=== PATIENT | female | born 1975 | race Caucasian/White ===

== ENCOUNTER 2018-02-03 11:40 | Inpatient (IN) | payer OTHER ==
[2018-02-03] MEDS ORDERED: Sodium Chloride 0.9% 10 ML Syringe FLUSH PRN (12:18)
[2018-02-03] MEDS ORDERED: Sodium Chloride 0.9% 2.5 ML Syringe FLUSH PRN (12:18)
[2018-02-03] MEDS ORDERED: Lactated Ringers 1,000 ML IV ONE (12:19)
[2018-02-03 12:55] LABS: CHLORIDE,CL 110 mmol/L (98-107); SODIUM,NA 140 mmol/L (136-145)
[2018-02-03] MEDS ORDERED: Pantoprazole 40 MG Vial IVPUSH ONE (13:10)
[2018-02-03] MEDS ORDERED: Pantoprazole 80 MG in Sodium Chloride 0.9% 100 ML IV SCH (13:15)
[2018-02-03] MEDS ORDERED: Ondansetron 4 MG/2 ML SDV IVPUSH PRN (14:09)
--- NOTE | 2018-02-03 14:13 | PCM.HP ---
H&P History of Present Illness - General Date of Service: 02/03/18 Admit Problem/Dx: Admission Diagnosis/Problem Admission Diagnosis/Problem GI bleed not requiring more than 4 units of blood in 24 hours, ICU, or surgery Source of Information: Patient, Old Records History Limitations: Reports: No Limitations - History of Present Illness Initial Comments - Free Text/Narative: This 42 year old female with pmh of HTN, untreated, presented to the ED today after having a large black and bloody incontinent bowel movement, per roomate report, this morning. She reports she started feeling short of breath, with racing/pounding heart and dizziness yesterday and it worsened with any activity. She thought maybe her blood pressure was elevated so she got a BP cuff , which was unable to register a BP. She reports a slight headache, no fever, chills, cough or URI symptoms. She denies chest pain or abdominal pain. No urinary symptoms. She reports she has noticed over the last few days her stools becoming darker and darker and nearly black last evening, no mecca blood that she noticed. She denies alcohol use or heavy NSAID use, She reports using Excedrin Tension as needed, mainly once every couple weeks if that. She has not noticed significant bowel habit changes, no constipation or diarrhea, but has noticed small stool caliber at times. No rectal pain or tenesmus. She denies heartburn or GERD like symptoms. celena was admitted in 2016 for pyelonephritis and noted to have Hgb of 7.7, transfused with 1 unit PRBCs but did not follow up after this admission with anyone regarding this. She reports she does have irregular periods that are quite heavy, needing to change a super tampon every 1 hr at some times during her 5-7 day menses. She is coming up on having her menses but is currently not having her menses. She has not had a pap smear recently and does not remember the last time she had one. She smokes almost a pack a day, little to no alcohol and no recreational drug use. In the ED, leukocytosis of 26,000, hgb 5.0 and Hct 15.8, BUN 51, Cr 0.9, glucose 145. Tachycardia and hypotension noted with HR in 130s ST and BP 90-100/ 50s. She was given Protonix bolus in the ED and LR bolus. She will be admitted for GI bleed and symptomatic anemia. No PCP - Related Data Allergies/Adverse Reactions: Allergies Allergy/AdvReac Type Severity Reaction Status Date / Time No Known Allergies Allergy Verified 02/03/18 12:12 Home Medications: Home Meds . [No Known Home Meds] 02/03/18 [History] Past Medical History HEENT History: Reports: None Cardiovascular History: Reports: Hypertension. Denies: Afib, Blood Clots/VTE/ DVT, CAD, [place] Respiratory History: Reports: None. Denies: Asthma, COPD Gastrointestinal History: Reports: GI Bleed. 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 Neurological History: Reports: None. Denies: CVA, Migraines, TIA Psychiatric History: Reports: None Endocrine/Metabolic History: Reports: None. Denies: Diabetes, Type II, Hypothyroidism Hematologic History: Reports: None - Infectious Disease History Infectious Disease History: Reports: Chicken Pox - Past Surgical History GI Surgical History: Reports: Other (See Below) (surgical repair of spleen laceration in 2006, still has spleen) Female Surgical History: Reports: Section Social & Family History - Family History Family Medical History: Noncontributory - Tobacco Use Smoking Status *Q: Current Every Day Smoker Years of Tobacco use: 15 Packs/Tins Daily: 1 Second Hand Smoke Exposure: Yes - Caffeine Use Caffeine Use: Reports: Coffee - Alcohol Use Days Per Week of Alcohol Use: 5 Number of Drinks Per Day: 2 Total Drinks Per Week: 10 - Recreational Drug Use Recreational Drug Use: No Recreational Drug Type: Reports: Marijuana/Hashish H&P Review of Systems - Review of Systems: Review Of Systems: See Below General: Reports: Weakness, Fatigue. Denies: Fever, Chills, Malaise HEENT: Denies: Headaches, Sinus Congestion, Visual Changes Pulmonary: Reports: Shortness of Breath. Denies: Wheezing, Cough, Sputum Cardiovascular: Reports: Dyspnea on Exertion, Lightheadedness, Syncope. Denies : Chest Pain Gastrointestinal: Reports: Black Stool, Bloody Stool, Diarrhea. Denies: Abdominal Pain, Nausea, Vomiting Genitourinary: Reports: No Symptoms. Denies: Dysuria, Frequency, Burning, Pain Musculoskeletal: Reports: No Symptoms Skin: Reports: No Symptoms Psychiatric: Reports: No Symptoms Neurological: Reports: No Symptoms Hematologic/Lymphatic: Reports: No Symptoms Immunologic: Reports: No Symptoms Exam - Exam Exam: See Below - Vital Signs Vital Signs: Last Vital Signs Temp 96.9 F 02/03/18 12:07 Pulse 138 H 02/03/18 12:07 Resp 22 H 02/03/18 12:07 BP 103/62 02/03/18 12:07 Pulse Ox 100 02/03/18 12:07 Weight: 55.021 kg - Exam General: Alert, Oriented, Cooperative, Other (pallor) HEENT: Conjunctiva Clear, Posterior Pharynx Clear. No: Mucosa Moist & [place] ( pale) Neck: Supple, Trachea Midline, 2 Lungs: Clear to Auscultation, Normal Respiratory Effort Cardiovascular: Regular Rhythm, Tachycardia GI/Abdominal Exam: Normal Bowel Sounds, Soft, Non-Tender, No Organomegaly, No Distention, No Abnormal Bruit, No Mass, Pelvis Stable Rectal (Female) Exam: Normal Rectal Tone, Black Stool, Heme + Stool. No: Hemorrhoids, Mass Extremities: Normal Inspection, Normal Range of Motion, Non-Tender, No Pedal Edema, Normal Capillary Refill Neuro Extensive - Mental Status: Alert, Oriented x3, Normal Mood/Affect, Normal Cognition Neuro Extensive - Motor, Sensory, Reflexes: CN II-XII Intact, Normal Gait, Normal Reflexes Psychiatric: Alert, Normal Affect, Normal Mood - Patient Data Lab Results Last 24 hrs: Laboratory Results - last 24 hr 02/03/18 02/03/18 02/03/18 Range/Units 12:08 12:08 12:08 WBC 26.41 H (4.0-11.0) K/uL RBC 1.83 L (4.30-5.90) M/uL Hgb 5.0 L (12.0-16.0) g/dL Hct 15.8 L (36.0-46.0) % MCV 86.3 (80.0-98.0) fL MCH 27.3 (27.0-32.0) pg MCHC 31.6 (31.0-37.0) g/dL RDW Std Deviation 47.3 (28.0-62.0) fl RDW Coeff of Bryan 15 (11.0-15.0) % Plt Count 353 (150-400) K/uL MPV 8.30 (7.40-12.00) fL Add Manual Diff YES Neutrophils % (Manual) 70 (48.0-80.0) % Band Neutrophils % 11 % Lymphocytes % (Manual) 17 (16.0-40.0) % Monocytes % (Manual) 1 (0.0-15.0) % Eosinophils % (Manual) 1 (0.0-7.0) % Nucleated RBC % 0.0 /100WBC Absolute Seg Neuts 18.5 H (1.4-5.7) Band Neutrophils # 2.9 Lymphocytes # (Manual) 4.5 H (0.6-2.4) Monocytes # (Manual) 0.3 (0.0-0.8) Eosinophils # (Manual) 0.3 (0.0-0.7) Nucleated RBCs # 0 K/uL Smear Path Review Absolute Retic (20-80) K/uL Percent Retic (0.5-1.5) % Immature Retic Fraction % INR 1.01 APTT 20.2 (18.6-31.3) SEC Sodium 140 (136-145) mmol/L Potassium 3.8 (3.5-5.1) mmol/L Chloride 110 H (98-107) mmol/L Carbon Dioxide 18.0 L (21.0-32.0) mmol/L BUN 51 H (7.0-18.0) mg/dL Creatinine 0.9 (0.6-1.0) mg/dL Est Cr Clr Drug Dosing TNP Estimated GFR (MDRD) > 60.0 ml/min Glucose 145 H (74-106) mg/dL Calcium 7.6 L (8.5-10.1) mg/dL Total Bilirubin 0.1 L (0.2-1.0) mg/dL AST 12 L (15-37) IU/L ALT 12 L (14-63) IU/L Alkaline Phosphatase 24 L (46-116) U/L Total Protein 4.4 L (6.4-8.2) g/dL Albumin 2.1 L (3.4-5.0) g/dL Globulin 2.3 (2.0-3.5) g/dL Albumin/Globulin Ratio 0.9 L (1.3-2.8) Blood Type Antibody Screen Crossmatch 02/03/18 02/03/18 02/03/18 Range/Units 12:08 12:08 12:08 WBC (4.0-11.0) K/uL RBC 1.83 L (4.30-5.90) M/uL Hgb (12.0-16.0) g/dL Hct (36.0-46.0) % MCV (80.0-98.0) fL MCH (27.0-32.0) pg MCHC (31.0-37.0) g/dL RDW Std Deviation (28.0-62.0) fl RDW Coeff of Bryan (11.0-15.0) % Plt Count (150-400) K/uL MPV (7.40-12.00) fL Add Manual Diff Neutrophils % (Manual) (48.0-80.0) % Band Neutrophils % % Lymphocytes % (Manual) (16.0-40.0) % Monocytes % (Manual) (0.0-15.0) % Eosinophils % (Manual) (0.0-7.0) % Nucleated RBC % /100WBC Absolute Seg Neuts (1.4-5.7) Band Neutrophils # Lymphocytes # (Manual) (0.6-2.4) Monocytes # (Manual) (0.0-0.8) Eosinophils # (Manual) (0.0-0.7) Nucleated RBCs # K/uL Smear Path Review SENT TO PATHOLOGY Absolute Retic 48.90 (20-80) K/uL Percent Retic 2.7 H (0.5-1.5) % Immature Retic Fraction 15 % INR APTT (18.6-31.3) SEC Sodium (136-145) mmol/L Potassium (3.5-5.1) mmol/L Chloride (98-107) mmol/L Carbon Dioxide (21.0-32.0) mmol/L BUN (7.0-18.0) mg/dL Creatinine (0.6-1.0) mg/dL Est Cr Clr Drug Dosing Estimated GFR (MDRD) ml/min Glucose (74-106) mg/dL Calcium (8.5-10.1) mg/dL Total Bilirubin (0.2-1.0) mg/dL AST (15-37) IU/L ALT (14-63) IU/L Alkaline Phosphatase (46-116) U/L Total Protein (6.4-8.2) g/dL Albumin (3.4-5.0) g/dL Globulin (2.0-3.5) g/dL Albumin/Globulin Ratio (1.3-2.8) Blood Type A POSITIVE Antibody Screen NEGATIVE Crossmatch See Detail Result Diagrams: 02/03/18 12:08 02/03/18 12:08 *Q Meaningful Use (ADM) - VTE *Q VTE Pharmacological Contraindications *Q: Risk of Bleeding - VTE Risk Assess *Q Each Risk Factor Represents 1 Point: Age 41 - 59 years Total Score 1 Point Risk Factors: 1 Each Risk Factor Represents 2 Points: None Total Score 2 Point Risk Factors: 0 Each Risk Factor Represents 3 Points: None Total Score 3 Point Risk Factors: 0 Each Risk Factor Represents 5 Points: None Total Score 5 Point Risk Factors: 0 Venous Thromboembolism Risk Factor Score *Q: 1 - Problem List (1) GI bleed SNOMED Code(s): 84461201 ICD Code: K92.2 - GASTROINTESTINAL HEMORRHAGE, UNSPECIFIED Status: Acute Current Visit: Yes Qualifiers: GI bleed type/associated pathology: unspecified gastrointestinal hemorrhage type Qualified Code(s): K92.2 - Gastrointestinal hemorrhage, unspecified (2) Symptomatic anemia SNOMED Code(s): 739583953 ICD Code: D64.9 - ANEMIA, UNSPECIFIED Status: Acute Current Visit: Yes (3) Hypotension SNOMED Code(s): 40541673 ICD Code: I95.9 - HYPOTENSION, UNSPECIFIED Status: Acute Current Visit: Yes (4) Tachycardia SNOMED Code(s): 0003966 ICD Code: R00.0 - TACHYCARDIA, UNSPECIFIED Status: Acute Current Visit: Yes (5) HTN (hypertension) SNOMED Code(s): 03236494 ICD Code: I10 - ESSENTIAL (PRIMARY) HYPERTENSION Status: Chronic Current Visit: Yes (6) Uterine fibroid SNOMED Code(s): 48888242 ICD Code: D25.9 - LEIOMYOMA OF UTERUS, UNSPECIFIED Status: Acute Current Visit: Yes Qualifiers: Uterine leiomyoma location: unspecified location Qualified Code(s): D25.9 - Leiomyoma of uterus, unspecified Problem List Initiated/Reviewed/Updated: Yes Orders Last 24hrs: Active Orders 24 hr Category Date Time Status Patient Status [ADT] Stat ADT 02/03/18 13:10 Active EKG 12 Lead [EKG Documentation Completion] [RC] ROUTINE Care 02/03/18 13:02 Active Hemoccult [Fecal Occult Blood Collection] [RC] Care 02/03/18 13:43 Ordered ASDIRECTED Intake and Output [RC] QSHIFT Care 02/03/18 14:09 Ordered Notify Provider Consults [RC] ASDIRECTED Care 02/03/18 14:11 Ordered Oxygen Therapy [RC] PRN Care 02/03/18 14:09 Ordered Up With Assistance [RC] ASDIRECTED Care 02/03/18 14:09 Ordered VTE/DVT Education [RC] PER UNIT ROUTINE Care 02/03/18 14:09 Ordered Vital Signs [RC] Q4H Care 02/03/18 14:09 Ordered Consult to Physician [CONS] Routine Cons 02/03/18 14:09 Ordered NPO [Nothing Per Oral Diet] [DIET] Diet 02/03/18 Dinner Ordered Abdomen Pelvis wo Cont [CT] Urgent Exams 02/03/18 14:11 Ordered Chest 1V Frontal [CR] Routine Exams 02/03/18 14:12 Ordered BASIC METABOLIC PANEL,BMP [CHEM] AM Lab 02/04/18 05:11 Ordered CBC WITH AUTO DIFF [HEME] AM Lab 02/04/18 05:11 Ordered CDIFF TOX A+B [OP] Routine Lab 02/03/18 13:42 Ordered CULTURE STOOL + CAMPY+SHIGATOX [RM] Routine Lab 02/03/18 13:42 Ordered FERRITIN [CHEM] Routine Lab 02/03/18 13:39 Ordered FOLIC ACID [CHEM] Routine Lab 02/03/18 13:39 Ordered Hemoccult [OCCULT BLOOD DIAGNOSTIC] [OP] Routine Lab 02/03/18 13:42 Ordered IRON/TIBC [CHEM] Routine Lab 02/03/18 13:39 Ordered RED BLOOD CELLS LP [BBK] Routine Lab 02/03/18 14:06 Ordered RED BLOOD CELLS LP [BBK] Stat Lab 02/03/18 12:08 Results TRANSFERRIN [CHEM] Routine Lab 02/03/18 13:39 Ordered TYPE AND SCREEN [BBK] Routine Lab 02/03/18 14:06 Ordered TYPE AND SCREEN [BBK] Stat Lab 02/03/18 12:08 Results UA W/MICROSCOPIC [URIN] Routine Lab 02/03/18 13:43 Ordered VITAMIN B12 [CHEM] Routine Lab 02/03/18 13:39 Ordered WBC, STOOL [OP] Routine Lab 02/03/18 13:42 Ordered Lactated Ringers @ 125 MLS/HR(1,000ml) Med 02/03/18 14:15 Ordered Lactated Ringers [Ringers, Lactated] 1,000 ml IV ASDIRECTED Ondansetron [Zofran] Med 02/03/18 14:09 Ordered 4 mg IVPUSH Q4H PRN Pantoprazole [ProTONIX IV] 80 mg Med 02/03/18 13:15 Active Sodium Chloride 0.9% [Normal Saline] 100 ml IV .Continuous Sodium Chloride 0.9% [Saline Flush] Med 02/03/18 12:18 Active 10 ml FLUSH ASDIRECTED PRN Sodium Chloride 0.9% [Saline Flush] Med 02/03/18 12:18 Active 2.5 ml FLUSH ASDIRECTED PRN Saline Lock Insert [OM.PC] Stat Oth 02/03/18 12:18 Ordered Sequential Compression Device [OM.PC] Per Unit Routine Oth 02/03/18 14:10 Ordered Transfuse Red Blood Cells [COMM] Stat Oth 02/03/18 12:53 Ordered Resuscitation Status Routine Resus Stat 02/03/18 14:09 Ordered Medication Orders Pantoprazole Sodium 80 mg/ (Sodium Chloride) 100 mls @ 10 mls/hr IV .Continuous BRYSON Lactated Ringer's (Ringers, Lactated) 1,000 mls @ 125 mls/hr IV ASDIRECTED BRYSON Ondansetron HCl (Zofran) 4 mg IVPUSH Q4H PRN PRN Reason: Nausea Sodium Chloride (Saline Flush) 10 ml FLUSH ASDIRECTED PRN PRN Reason: Keep Vein Open Sodium Chloride (Saline Flush) 2.5 ml FLUSH ASDIRECTED PRN PRN Reason: Keep Vein Open Assessment/Plan Comment:: This 42 year old female admitted with GI bleed and symptomatic anemia 1. GI bleed: Hgb 5.0 today. Transfuse 2 units now and likely 2 more this evening with goal of hgb at 10.0. Will Keep Protonix 40 mg IV BID for now. NPO with ice chips. Add H pylori to blood work. No abdominal pain. Hemoccult positive. Stool studies pending. Consult Dr Duran, general surgery for possible EGD. 2. Symptomatic anemia: Transfuse as above. Iron studies and peripheral smear pending. peripheral smear from 2 years ago revealed early iron deficiency anemia. 3. Leukocytosis: CXR and ua to evaluated further. Abdominal CT revealed no acute abdominal or pelvis findings. It did not hypodense blood suggesting anemia , small uterine fibroid and mild diverticulosis without evidence of diverticulitis. leukocytosis may be related to stress response from anemia. Will repeat this evening. 4. HTN: Not treated with medications. Monitor. currently hypotensive. No nicotine replacement at this time due to tachycardia and acute GI bleeding. VTE prophylaxis: SCDs only due to acute GI bleed and anemia Dispo: 2-3 days pending improvement. Will need follow up with PCP, [employer] related to heavy menses and uterine fibroid as well as general surgery for colonoscopy.
--- NOTE | 2018-02-03 15:20 | CT ---
CT of the abdomen and pelvis without contrast. HISTORY: Leukocytosis TECHNIQUE: Axial CT images were obtained of the abdomen and pelvis without contrast. Coronal and sagi ttal reconstructions obtained. FINDINGS: The lung bases are clear, no pleural effusion. The blood volume appears hypodense relative to the aor tic farias and myocardium. The liver, spleen, adrenal glands, and pancreas appear unremarkable for noncontrast examination. The gallbladder appears normal. There is no bulky retroperitoneal lymphadenopathy. No abdominal ascites. There are no calcifications noted within the kidneys or along the courses of the ureters bilaterally. The large and small bowel are normal in caliber without evidence of obstruction. The appendix appears normal. Few scattered diverticula noted. There is no bulky pelvic lymphadenopathy. No free fluid. No free air. The urinary bladder appears normal. Anterior uterine fibroid noted measuring approximately 3 cm. The visualized osseous structures appear normal. IMPRESSION: 1. No acute findings within the abdomen or pelvis. 2. Hypodense blood suggesting anemia. 3. Small uterine fibroid. 4. Mild diverticulosis without evidence of diverticulitis.
--- NOTE | 2018-02-03 15:28 | CR ---
EXAMINATION: Portable chest radiograph. HISTORY: Leukocytosis. FINDINGS: The trachea is midline. The cardiomediastinal silhouette is within normal limits. No pulmonary infilt rates, effusions or pneumothorax. Osseous structures appear unremarkable. IMPRESSION: No acute cardiopulmonary process.
--- NOTE | 2018-02-03 15:35 | PCM.CONS ---
H&P History of Present Illness - General Date of Service: 02/03/18 Admit Problem/Dx: Admission Diagnosis/Problem Admission Diagnosis/Problem GI bleed not requiring more than 4 units of blood in 24 hours, ICU, or surgery Source of Information: Patient History Limitations: Reports: No Limitations - History of Present Illness Initial Comments - Free Text/Narative: Patient is a 42 year old female who presents anemic with an acute GI bleed. Her past medical history is significant for pyelonephritis 2 years ago. At that time she was anemic and given 2 units of blood. She had no follow up. 3-4 days ago she started noticing her stool becoming very dark. This morning she had fecal incontinence of dark tarry stool and a syncopal episode. She presented to the ED. She was tachycardic and pale. Her hgb was 5 and hct 15. She had fecal occult positive stool. A CT of the abdomen/pelvis was positive for divertiuclosis and uterine fibroids. She did admit to having very heavy menses. She denies having any episodes like this before. She complains of weakness, dizziness, exercise intolerance and shortness of breath. She denies heartburn but intermittently will have epigastric pressure. She has never had a colonoscopy or EGD. She has no family history of colon cancer. - Related Data Allergies/Adverse Reactions: Allergies Allergy/AdvReac Type Severity Reaction Status Date / Time No Known Allergies Allergy Verified 02/03/18 12:12 Home Medications: Home Meds . [No Known Home Meds] 02/03/18 [History] Past Medical History HEENT History: Reports: None Cardiovascular History: Reports: Hypertension. Denies: Afib, Blood Clots/VTE/ DVT, CAD, [place] Respiratory History: Reports: None. Denies: Asthma, COPD Gastrointestinal History: Reports: GI Bleed. 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 Neurological History: Reports: None. Denies: CVA, Migraines, TIA Psychiatric History: Reports: None Endocrine/Metabolic History: Reports: None. Denies: Diabetes, Type II, Hypothyroidism Hematologic History: Reports: None - Infectious Disease History Infectious Disease History: Reports: Chicken Pox - Past Surgical History GI Surgical History: Reports: Other (See Below) (surgical repair of spleen laceration in 2006, still has spleen) Female Surgical History: Reports: Section Social & Family History - Family History Family Medical History: Noncontributory - Tobacco Use Smoking Status *Q: Current Every Day Smoker Years of Tobacco use: 15 Packs/Tins Daily: 1 Second Hand Smoke Exposure: Yes - Caffeine Use Caffeine Use: Reports: Coffee - Alcohol Use Days Per Week of Alcohol Use: 5 Number of Drinks Per Day: 2 Total Drinks Per Week: 10 - Recreational Drug Use Recreational Drug Use: No Recreational Drug Type: Reports: Marijuana/Hashish H&P Review of Systems - Review of Systems: Review Of Systems: ROS reveals no pertinent complaints other than HPI. Exam - Exam Exam: See Below - Vital Signs Vital Signs: Last Vital Signs Temp 37.2 C 02/03/18 14:55 Pulse 114 H 02/03/18 14:55 Resp 16 02/03/18 14:55 BP 121/80 02/03/18 14:55 Pulse Ox 100 02/03/18 14:55 Weight: 55.021 kg - Exam Quality Assessment: Supplemental Oxygen General: Alert, Oriented HEENT: Conjunctiva Clear, Hearing Intact, Posterior Pharynx Clear, Pupils Equal , Pupils Reactive, Other (Pale mucous membranes ) Neck: Supple, Trachea Midline Lungs: Clear to Auscultation, Normal Respiratory Effort Cardiovascular: Regular Rhythm, Tachycardia GI/Abdominal Exam: Soft, Non-Tender, No Distention, No Mass Rectal (Female) Exam: Normal Exam, Normal Rectal Tone, Black Stool, Heme + Stool Back Exam: Normal Inspection, Full Range of Motion Extremities: Normal Inspection, Normal Range of Motion Skin: Warm, Dry, Other (Pale) - Patient Data Lab Results Last 24 hrs: Laboratory Results - last 24 hr 02/03/18 02/03/18 02/03/18 Range/Units 12:08 12:08 12:08 WBC 26.41 H (4.0-11.0) K/uL RBC 1.83 L (4.30-5.90) M/uL Hgb 5.0 L (12.0-16.0) g/dL Hct 15.8 L (36.0-46.0) % MCV 86.3 (80.0-98.0) fL MCH 27.3 (27.0-32.0) pg MCHC 31.6 (31.0-37.0) g/dL RDW Std Deviation 47.3 (28.0-62.0) fl RDW Coeff of Bryan 15 (11.0-15.0) % Plt Count 353 (150-400) K/uL MPV 8.30 (7.40-12.00) fL Add Manual Diff YES Neutrophils % (Manual) 70 (48.0-80.0) % Band Neutrophils % 11 % Lymphocytes % (Manual) 17 (16.0-40.0) % Monocytes % (Manual) 1 (0.0-15.0) % Eosinophils % (Manual) 1 (0.0-7.0) % Nucleated RBC % 0.0 /100WBC Absolute Seg Neuts 18.5 H (1.4-5.7) Band Neutrophils # 2.9 Lymphocytes # (Manual) 4.5 H (0.6-2.4) Monocytes # (Manual) 0.3 (0.0-0.8) Eosinophils # (Manual) 0.3 (0.0-0.7) Nucleated RBCs # 0 K/uL Smear Path Review Absolute Retic (20-80) K/uL Percent Retic (0.5-1.5) % Immature Retic Fraction % INR 1.01 APTT 20.2 (18.6-31.3) SEC Sodium 140 (136-145) mmol/L Potassium 3.8 (3.5-5.1) mmol/L Chloride 110 H (98-107) mmol/L Carbon Dioxide 18.0 L (21.0-32.0) mmol/L BUN 51 H (7.0-18.0) mg/dL Creatinine 0.9 (0.6-1.0) mg/dL Est Cr Clr Drug Dosing TNP Estimated GFR (MDRD) > 60.0 ml/min Glucose 145 H (74-106) mg/dL Calcium 7.6 L (8.5-10.1) mg/dL Iron (50-175) ug/dL TIBC (250-450) ug/dL % Saturation (20-55) % Transferrin (200-400) ug/dL Ferritin (8-252) ng/mL Total Bilirubin 0.1 L (0.2-1.0) mg/dL AST 12 L (15-37) IU/L ALT 12 L (14-63) IU/L Alkaline Phosphatase 24 L (46-116) U/L Total Protein 4.4 L (6.4-8.2) g/dL Albumin 2.1 L (3.4-5.0) g/dL Globulin 2.3 (2.0-3.5) g/dL Albumin/Globulin Ratio 0.9 L (1.3-2.8) Vitamin B12 (193-986) pg/mL Folate (8.60-58.90) ng/mL Blood Type Antibody Screen Crossmatch 02/03/18 02/03/18 02/03/18 Range/Units 12:08 12:08 12:08 WBC (4.0-11.0) K/uL RBC 1.83 L (4.30-5.90) M/uL Hgb (12.0-16.0) g/dL Hct (36.0-46.0) % MCV (80.0-98.0) fL MCH (27.0-32.0) pg MCHC (31.0-37.0) g/dL RDW Std Deviation (28.0-62.0) fl RDW Coeff of Bryan (11.0-15.0) % Plt Count (150-400) K/uL MPV (7.40-12.00) fL Add Manual Diff Neutrophils % (Manual) (48.0-80.0) % Band Neutrophils % % Lymphocytes % (Manual) (16.0-40.0) % Monocytes % (Manual) (0.0-15.0) % Eosinophils % (Manual) (0.0-7.0) % Nucleated RBC % /100WBC Absolute Seg Neuts (1.4-5.7) Band Neutrophils # Lymphocytes # (Manual) (0.6-2.4) Monocytes # (Manual) (0.0-0.8) Eosinophils # (Manual) (0.0-0.7) Nucleated RBCs # K/uL Smear Path Review Absolute Retic 48.90 (20-80) K/uL Percent Retic 2.7 H (0.5-1.5) % Immature Retic Fraction 15 % INR APTT (18.6-31.3) SEC Sodium (136-145) mmol/L Potassium (3.5-5.1) mmol/L Chloride (98-107) mmol/L Carbon Dioxide (21.0-32.0) mmol/L BUN (7.0-18.0) mg/dL Creatinine (0.6-1.0) mg/dL Est Cr Clr Drug Dosing Estimated GFR (MDRD) ml/min Glucose (74-106) mg/dL Calcium (8.5-10.1) mg/dL Iron 24 L (50-175) ug/dL TIBC 269 (250-450) ug/dL % Saturation 8.92 L (20-55) % Transferrin 188 L (200-400) ug/dL Ferritin 6 L (8-252) ng/mL Total Bilirubin (0.2-1.0) mg/dL AST (15-37) IU/L ALT (14-63) IU/L Alkaline Phosphatase (46-116) U/L Total Protein (6.4-8.2) g/dL Albumin (3.4-5.0) g/dL Globulin (2.0-3.5) g/dL Albumin/Globulin Ratio (1.3-2.8) Vitamin B12 (193-986) pg/mL Folate (8.60-58.90) ng/mL Blood Type A POSITIVE Antibody Screen NEGATIVE Crossmatch See Detail 02/03/18 02/03/18 Range/Units 12:08 12:08 WBC (4.0-11.0) K/uL RBC (4.30-5.90) M/uL Hgb (12.0-16.0) g/dL Hct (36.0-46.0) % MCV (80.0-98.0) fL MCH (27.0-32.0) pg MCHC (31.0-37.0) g/dL RDW Std Deviation (28.0-62.0) fl RDW Coeff of Bryan (11.0-15.0) % Plt Count (150-400) K/uL MPV (7.40-12.00) fL Add Manual Diff Neutrophils % (Manual) (48.0-80.0) % Band Neutrophils % % Lymphocytes % (Manual) (16.0-40.0) % Monocytes % (Manual) (0.0-15.0) % Eosinophils % (Manual) (0.0-7.0) % Nucleated RBC % /100WBC Absolute Seg Neuts (1.4-5.7) Band Neutrophils # Lymphocytes # (Manual) (0.6-2.4) Monocytes # (Manual) (0.0-0.8) Eosinophils # (Manual) (0.0-0.7) Nucleated RBCs # K/uL Smear Path Review SENT TO PATHOLOGY Absolute Retic (20-80) K/uL Percent Retic (0.5-1.5) % Immature Retic Fraction % INR APTT (18.6-31.3) SEC Sodium (136-145) mmol/L Potassium (3.5-5.1) mmol/L Chloride (98-107) mmol/L Carbon Dioxide (21.0-32.0) mmol/L BUN (7.0-18.0) mg/dL Creatinine (0.6-1.0) mg/dL Est Cr Clr Drug Dosing Estimated GFR (MDRD) ml/min Glucose (74-106) mg/dL Calcium (8.5-10.1) mg/dL Iron (50-175) ug/dL TIBC (250-450) ug/dL % Saturation (20-55) % Transferrin (200-400) ug/dL Ferritin (8-252) ng/mL Total Bilirubin (0.2-1.0) mg/dL AST (15-37) IU/L ALT (14-63) IU/L Alkaline Phosphatase (46-116) U/L Total Protein (6.4-8.2) g/dL Albumin (3.4-5.0) g/dL Globulin (2.0-3.5) g/dL Albumin/Globulin Ratio (1.3-2.8) Vitamin B12 197 (193-986) pg/mL Folate 18.60 (8.60-58.90) ng/mL Blood Type Antibody Screen Crossmatch Result Diagrams: 02/03/18 12:08 02/03/18 12:08 Himanshu Results Last 24 hrs: Microbiology 02/03/18 14:30 Stool Occult Blood (HIMANSHU) - Final Stool / Feces POSITIVE OCCULT BLOOD Consult PN Assessment/Plan Procedures: Procedures ASSAY OF LIPASE (07/13/16) COMPLETE CBC W/AUTO DIFF WBC (07/13/16) COMPREHEN METABOLIC PANEL (07/13/16) ECHO EXAM OF ABDOMEN (07/13/16) EMERGENCY DEPT VISIT (07/13/16) HYDRATE IV INFUSION ADD-ON (07/13/16) THER/PROPH/DIAG INJ IV PUSH (07/13/16) X-RAY EXAM OF ABDOMEN (07/13/16) Problem List Initiated/Reviewed/Updated: Yes Plan: Patient is receiving 4 units of blood and ongoing resuscitation. Remains tachycardic but resuscitation has just started. H pylori is negative. She is getting IV protonix. Most likely source of acute bleed is a GI. Her chronic anemia could be due to uterine fibroid disease in conjunction with this. If patient resuscitates well may try to do EGD while in-patient. We discussed the procedure as well as risks including bleeding or perforation.She agreed to the procedure. If no source found will need colonoscopy. This may be done as an outpatient if she stabilizes. She will need outpatient f/u with a railcar mechanic as well.
[2018-02-03] MEDS: Lactated Ringers 1,000 ML IV SCH (18:32)
[2018-02-03] MEDS: Acetaminophen 325 MG Tab PO PRN (20:49)
[2018-02-04] MEDS: Pantoprazole 40 MG Vial IVPUSH SCH ×2 (00:38→13:24)
[2018-02-04] MEDS: Lactated Ringers 1,000 ML IV SCH (02:56)
[2018-02-04 05:39] LABS: CHLORIDE,CL 110 mmol/L (98-107); SODIUM,NA 139 mmol/L (136-145)
--- NOTE | 2018-02-04 07:48 | PCM.PREANE ---
Preanesthetic Assessment - Anesthesia/Transfusion/Family Hx Anesthesia History: Prior Anesthesia Without Reaction Transfusion History: Prior Transfusion Without Reaction - Review of Systems General: Weakness Pulmonary: No Symptoms Cardiovascular: Palpitations, Lightheadedness Gastrointestinal: No Symptoms Neurological: No Symptoms Other: Reports: None - Physical Assessment NPO Status Date: 02/03/18 NPO Status Time: 17:00 O2 Sat by Pulse Oximetry: 97 Respiratory Rate: 16 Temperature: 99.3 F Vital Signs: Last Vital Signs Temp 98.0 F 02/04/18 04:00 Pulse 84 02/04/18 04:00 Resp 16 02/04/18 04:00 BP 117/71 02/04/18 04:00 Pulse Ox 97 02/04/18 04:00 Weight: 55.021 kg ASA Class: 2 Mental Status: Alert & Oriented x3 Airway Class: Mallampati = 2 Dentition: Reports: Broken Tooth/Teeth (Denies any currently loose teeth), Missing Tooth/Teeth Thyro-Mental Finger Breadths: 3 Mouth Opening Finger Breadths: 3 ROM/Head Extension: Full Lungs: Clear to Auscultation, Normal Respiratory Effort Cardiovascular: Regular Rate, Regular Rhythm - Lab Values: Laboratory Last Values WBC 16.96 K/uL (4.0-11.0) H 02/04/18 04:50 RBC 3.55 M/uL (4.30-5.90) L 02/04/18 04:50 Hgb 9.9 g/dL (12.0-16.0) L 02/04/18 04:50 Hct 29.1 % (36.0-46.0) L 02/04/18 04:50 MCV 82.0 fL (80.0-98.0) 02/04/18 04:50 MCH 27.9 pg (27.0-32.0) 02/04/18 04:50 MCHC 34.0 g/dL (31.0-37.0) 02/04/18 04:50 RDW Std Deviation 49.5 fl (28.0-62.0) 02/04/18 04:50 RDW Coeff of Bryan 17 % (11.0-15.0) H 02/04/18 04:50 Plt Count 226 K/uL (150-400) 02/04/18 04:50 MPV 8.40 fL (7.40-12.00) 02/04/18 04:50 Neut % (Auto) 76.4 % (48.0-80.0) 02/03/18 19:15 Lymph % (Auto) 17.8 % (16.0-40.0) 02/03/18 19:15 [place] % (Auto) 5.7 % (0.0-15.0) 02/03/18 19:15 Eos % (Auto) 0.0 % (0.0-7.0) 02/03/18 19:15 Baso % (Auto) 0.1 % (0.0-1.5) 02/03/18 19:15 Neut # (Auto) 15.7 K/uL (1.4-5.7) H 02/03/18 19:15 Lymph # (Auto) 3.7 K/uL (0.6-2.4) H 02/03/18 19:15 [place] # (Auto) 1.2 K/uL (0.0-0.8) H 02/03/18 19:15 Eos # (Auto) 0.0 K/uL (0.0-0.7) 02/03/18 19:15 Baso # (Auto) 0.0 K/uL (0.0-0.1) 02/03/18 19:15 Add Manual Diff YES 02/04/18 04:50 Neutrophils % (Manual) 70 % (48.0-80.0) 02/04/18 04:50 Band Neutrophils % 11 % 02/03/18 12:08 Lymphocytes % (Manual) 23 % (16.0-40.0) 02/04/18 04:50 Monocytes % (Manual) 6 % (0.0-15.0) 02/04/18 04:50 Eosinophils % (Manual) 1 % (0.0-7.0) 02/03/18 12:08 Metamyelocytes % 1 % 02/04/18 04:50 Nucleated RBC % 0.0 /100WBC 02/04/18 04:50 Absolute Seg Neuts 11.9 (1.4-5.7) H 02/04/18 04:50 Band Neutrophils # 2.9 02/03/18 12:08 Lymphocytes # (Manual) 3.9 (0.6-2.4) H 02/04/18 04:50 Monocytes # (Manual) 1.0 (0.0-0.8) H 02/04/18 04:50 Eosinophils # (Manual) 0.3 (0.0-0.7) 02/03/18 12:08 Absolute Metamyelocyte 0.2 02/04/18 04:50 Nucleated RBCs # 0 K/uL 02/04/18 04:50 Smear Path Review SENT TO PATHOLOGY 02/03/18 12:08 Absolute Retic 48.90 K/uL (20-80) 02/03/18 12:08 Percent Retic 2.7 % (0.5-1.5) H 02/03/18 12:08 Immature Retic Fraction 15 % 02/03/18 12:08 INR 1.01 02/03/18 12:08 APTT 20.2 SEC (18.6-31.3) 02/03/18 12:08 Sodium 139 mmol/L (136-145) 02/04/18 04:50 Potassium 3.5 mmol/L (3.5-5.1) 02/04/18 04:50 Chloride 110 mmol/L (98-107) H 02/04/18 04:50 Carbon Dioxide 22.1 mmol/L (21.0-32.0) 02/04/18 04:50 BUN 28 mg/dL (7.0-18.0) H 02/04/18 04:50 Creatinine 0.7 mg/dL (0.6-1.0) 02/04/18 04:50 Est Cr Clr Drug Dosing TNP 02/04/18 04:50 Estimated GFR (MDRD) > 60.0 ml/min 02/04/18 04:50 Glucose 91 mg/dL (74-106) 02/04/18 04:50 Calcium 7.5 mg/dL (8.5-10.1) L 02/04/18 04:50 Iron 24 ug/dL (50-175) L 02/03/18 12:08 TIBC 269 ug/dL (250-450) 02/03/18 12:08 % Saturation 8.92 % (20-55) L 02/03/18 12:08 Transferrin 188 ug/dL (200-400) L 02/03/18 12:08 Ferritin 6 ng/mL (8-252) L 02/03/18 12:08 Total Bilirubin 0.1 mg/dL (0.2-1.0) L 02/03/18 12:08 AST 12 IU/L (15-37) L 02/03/18 12:08 ALT 12 IU/L (14-63) L 02/03/18 12:08 Alkaline Phosphatase 24 U/L (46-116) L 02/03/18 12:08 Total Protein 4.4 g/dL (6.4-8.2) L 02/03/18 12:08 Albumin 2.1 g/dL (3.4-5.0) L 02/03/18 12:08 Globulin 2.3 g/dL (2.0-3.5) 02/03/18 12:08 Albumin/Globulin Ratio 0.9 (1.3-2.8) L 02/03/18 12:08 Vitamin B12 197 pg/mL (193-986) 02/03/18 12:08 Folate 18.60 ng/mL (8.60-58.90) 02/03/18 12:08 H. pylori IgG Antibody NEGATIVE (NEG) 02/03/18 12:08 Blood Type A POSITIVE 02/03/18 12:08 Antibody Screen NEGATIVE 02/03/18 12:08 Crossmatch See Detail 02/03/18 12:08 - Allergies Allergies/Adverse Reactions: Allergies Allergy/AdvReac Type Severity Reaction Status Date / Time No Known Allergies Allergy Verified 02/03/18 12:12 - Anesthesia Plan Free Text/Narrative:: Pt was seen in the ER yesterday for tachycardia, pale, and weakness. + Occult blood with starting HgB of 5.0, pt was transfused 4 units of PRBC. This AM the patient appears better and states she is feeling a little better this morning. - Acknowledgements Anesthesia Type Planned: MAC Pt an Appropriate Candidate for the Planned Anesthesia: Yes Alternatives and Risks of Anesthesia Discussed w Pt/Guardian: Yes Pt/Guardian Understands and Agrees with Anesthesia Plan: Yes PreAnesthesia Questionnaire HEENT History: Reports: None Cardiovascular History: Reports: Hypertension. Denies: Afib, Blood Clots/VTE/ DVT, CAD, [place] Respiratory History: Reports: None. Denies: Asthma, COPD Gastrointestinal History: Reports: GI Bleed. Denies: GERD Other Gastrointestinal History: Spleen was operated on but not removed in 2006 Genitourinary History: Reports: Pyelonephritis, UTI, Recurrent TOOL AND DIE REPAIR History: Reports: Other (See Below) Other OB/BYN History: Pt reported she was experiencing delayed periods for some months now, each month taking it longer and longer; she is delayed for 25 days now. Musculoskeletal History: Reports: None Neurological History: Reports: None. Denies: CVA, Migraines, TIA Psychiatric History: Reports: None Endocrine/Metabolic History: Reports: None. 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 [No Known Home Meds] 02/03/18 [History] - CURRENT (IN HOUSE) MEDS Current Meds: Current Medications Acetaminophen (Tylenol) 650 mg PO Q4H PRN PRN Reason: Fever Last Admin: 02/03/18 20:49 Dose: 650 mg Lactated Ringer's (Ringers, Lactated) 1,000 mls @ 125 mls/hr IV ASDIRECTED BRYSON Last Admin: 02/04/18 02:56 Dose: 125 mls/hr Ondansetron HCl (Zofran) 4 mg IVPUSH Q4H PRN PRN Reason: Nausea Pantoprazole Sodium (Protonix Iv) 40 mg IVPUSH Q12H [facility] Last Admin: 02/04/18 00:38 Dose: 40 mg Sodium Chloride (Saline Flush) 10 ml FLUSH ASDIRECTED PRN PRN Reason: Keep Vein Open Sodium Chloride (Saline Flush) 2.5 ml FLUSH ASDIRECTED PRN PRN Reason: Keep Vein Open Discontinued Medications Lactated Ringer's (Ringers, Lactated) 1,000 mls @ 999 mls/hr IV .BOLUS ONE Stop: 02/03/18 13:19 Last Admin: 02/03/18 12:35 Dose: 999 mls/hr Pantoprazole Sodium 80 mg/ (Sodium Chloride) 100 mls @ 10 mls/hr IV .Continuous BRYSON Pantoprazole Sodium (Protonix Iv) 80 mg IVPUSH .BOLUS ONE Stop: 02/03/18 13:11 Last Admin: 02/03/18 13:26 Dose: 80 mg
--- NOTE | 2018-02-04 09:59 | PCM.PN ---
- General Info Date of Service: 02/04/18 Admission Dx/Problem (Free Text): Admission Diagnosis/Problem Admission Diagnosis/Problem GI bleed not requiring more than 4 units of blood in 24 hours, ICU, or surgery Subjective Update: Feeling a little better this morning, no stools overnight. No chest pain. Shortness of breath and lightheadedness has improved. No complaints other than being hungry. Functional Status: Reports: Pain Controlled, Ambulating, Urinating - Review of Systems General: Reports: No Symptoms. Denies: Fever, Weakness, Fatigue, Malaise Pulmonary: Reports: No Symptoms. Denies: Shortness of Breath Cardiovascular: Reports: No Symptoms. Denies: Chest Pain Gastrointestinal: Reports: No Symptoms. Denies: Abdominal Pain, Nausea, Vomiting Genitourinary: Reports: No Symptoms. Denies: Dysuria, Frequency, Burning, Pain Musculoskeletal: Reports: No Symptoms Skin: Reports: No Symptoms Neurological: Reports: No Symptoms Psychiatric: Reports: No Symptoms - Patient Data Vitals - Most Recent: Last Vital Signs Temp 99.3 F 02/04/18 08:03 Pulse 84 02/04/18 04:00 Resp 16 02/04/18 08:03 BP 117/71 02/04/18 04:00 Pulse Ox 97 02/04/18 08:03 Weight - Most Recent: 55.021 kg I&O - Last 24 Hours: Intake & Output 02/03/18 02/04/18 02/04/18 22:59 06:59 14:59 Intake Total 722 688 Output Total 400 Balance 322 688 Lab Results Last 24 Hours: Laboratory Results - last 24 hr 02/03/18 02/03/18 02/03/18 Range/Units 12:08 12:08 12:08 WBC 26.41 H (4.0-11.0) K/uL RBC 1.83 L (4.30-5.90) M/uL Hgb 5.0 L (12.0-16.0) g/dL Hct 15.8 L (36.0-46.0) % MCV 86.3 (80.0-98.0) fL MCH 27.3 (27.0-32.0) pg MCHC 31.6 (31.0-37.0) g/dL RDW Std Deviation 47.3 (28.0-62.0) fl RDW Coeff of Bryan 15 (11.0-15.0) % Plt Count 353 (150-400) K/uL MPV 8.30 (7.40-12.00) fL Neut % (Auto) (48.0-80.0) % Lymph % (Auto) (16.0-40.0) % [place] % (Auto) (0.0-15.0) % Eos % (Auto) (0.0-7.0) % Baso % (Auto) (0.0-1.5) % Neut # (Auto) (1.4-5.7) K/uL Lymph # (Auto) (0.6-2.4) K/uL [place] # (Auto) (0.0-0.8) K/uL Eos # (Auto) (0.0-0.7) K/uL Baso # (Auto) (0.0-0.1) K/uL Add Manual Diff YES Neutrophils % (Manual) 70 (48.0-80.0) % Band Neutrophils % 11 % Lymphocytes % (Manual) 17 (16.0-40.0) % Monocytes % (Manual) 1 (0.0-15.0) % Eosinophils % (Manual) 1 (0.0-7.0) % Metamyelocytes % % Nucleated RBC % 0.0 /100WBC Absolute Seg Neuts 18.5 H (1.4-5.7) Band Neutrophils # 2.9 Lymphocytes # (Manual) 4.5 H (0.6-2.4) Monocytes # (Manual) 0.3 (0.0-0.8) Eosinophils # (Manual) 0.3 (0.0-0.7) Absolute Metamyelocyte Nucleated RBCs # 0 K/uL Smear Path Review Absolute Retic (20-80) K/uL Percent Retic (0.5-1.5) % Immature Retic Fraction % INR 1.01 APTT 20.2 (18.6-31.3) SEC Sodium 140 (136-145) mmol/L Potassium 3.8 (3.5-5.1) mmol/L Chloride 110 H (98-107) mmol/L Carbon Dioxide 18.0 L (21.0-32.0) mmol/L BUN 51 H (7.0-18.0) mg/dL Creatinine 0.9 (0.6-1.0) mg/dL Est Cr Clr Drug Dosing TNP Estimated GFR (MDRD) > 60.0 ml/min Glucose 145 H (74-106) mg/dL Calcium 7.6 L (8.5-10.1) mg/dL Iron (50-175) ug/dL TIBC (250-450) ug/dL % Saturation (20-55) % Transferrin (200-400) ug/dL Ferritin (8-252) ng/mL Total Bilirubin 0.1 L (0.2-1.0) mg/dL AST 12 L (15-37) IU/L ALT 12 L (14-63) IU/L Alkaline Phosphatase 24 L (46-116) U/L Total Protein 4.4 L (6.4-8.2) g/dL Albumin 2.1 L (3.4-5.0) g/dL Globulin 2.3 (2.0-3.5) g/dL Albumin/Globulin Ratio 0.9 L (1.3-2.8) Vitamin B12 (193-986) pg/mL Folate (8.60-58.90) ng/mL Urine HCG, Qual (NEGATIVE) H. pylori IgG Antibody (NEG) Blood Type Antibody Screen Crossmatch 02/03/18 02/03/18 02/03/18 Range/Units 12:08 12:08 12:08 WBC (4.0-11.0) K/uL RBC 1.83 L (4.30-5.90) M/uL Hgb (12.0-16.0) g/dL Hct (36.0-46.0) % MCV (80.0-98.0) fL MCH (27.0-32.0) pg MCHC (31.0-37.0) g/dL RDW Std Deviation (28.0-62.0) fl RDW Coeff of Bryan (11.0-15.0) % Plt Count (150-400) K/uL MPV (7.40-12.00) fL Neut % (Auto) (48.0-80.0) % Lymph % (Auto) (16.0-40.0) % [place] % (Auto) (0.0-15.0) % Eos % (Auto) (0.0-7.0) % Baso % (Auto) (0.0-1.5) % Neut # (Auto) (1.4-5.7) K/uL Lymph # (Auto) (0.6-2.4) K/uL [place] # (Auto) (0.0-0.8) K/uL Eos # (Auto) (0.0-0.7) K/uL Baso # (Auto) (0.0-0.1) K/uL Add Manual Diff Neutrophils % (Manual) (48.0-80.0) % Band Neutrophils % % Lymphocytes % (Manual) (16.0-40.0) % Monocytes % (Manual) (0.0-15.0) % Eosinophils % (Manual) (0.0-7.0) % Metamyelocytes % % Nucleated RBC % /100WBC Absolute Seg Neuts (1.4-5.7) Band Neutrophils # Lymphocytes # (Manual) (0.6-2.4) Monocytes # (Manual) (0.0-0.8) Eosinophils # (Manual) (0.0-0.7) Absolute Metamyelocyte Nucleated RBCs # K/uL Smear Path Review Absolute Retic 48.90 (20-80) K/uL Percent Retic 2.7 H (0.5-1.5) % Immature Retic Fraction 15 % INR APTT (18.6-31.3) SEC Sodium (136-145) mmol/L Potassium (3.5-5.1) mmol/L Chloride (98-107) mmol/L Carbon Dioxide (21.0-32.0) mmol/L BUN (7.0-18.0) mg/dL Creatinine (0.6-1.0) mg/dL Est Cr Clr Drug Dosing Estimated GFR (MDRD) ml/min Glucose (74-106) mg/dL Calcium (8.5-10.1) mg/dL Iron 24 L (50-175) ug/dL TIBC 269 (250-450) ug/dL % Saturation 8.92 L (20-55) % Transferrin 188 L (200-400) ug/dL Ferritin 6 L (8-252) ng/mL Total Bilirubin (0.2-1.0) mg/dL AST (15-37) IU/L ALT (14-63) IU/L Alkaline Phosphatase (46-116) U/L Total Protein (6.4-8.2) g/dL Albumin (3.4-5.0) g/dL Globulin (2.0-3.5) g/dL Albumin/Globulin Ratio (1.3-2.8) Vitamin B12 (193-986) pg/mL Folate (8.60-58.90) ng/mL Urine HCG, Qual (NEGATIVE) H. pylori IgG Antibody (NEG) Blood Type A POSITIVE Antibody Screen NEGATIVE Crossmatch See Detail 02/03/18 02/03/18 02/03/18 Range/Units 12:08 12:08 12:08 WBC (4.0-11.0) K/uL RBC (4.30-5.90) M/uL Hgb (12.0-16.0) g/dL Hct (36.0-46.0) % MCV (80.0-98.0) fL MCH (27.0-32.0) pg MCHC (31.0-37.0) g/dL RDW Std Deviation (28.0-62.0) fl RDW Coeff of Bryan (11.0-15.0) % Plt Count (150-400) K/uL MPV (7.40-12.00) fL Neut % (Auto) (48.0-80.0) % Lymph % (Auto) (16.0-40.0) % [place] % (Auto) (0.0-15.0) % Eos % (Auto) (0.0-7.0) % Baso % (Auto) (0.0-1.5) % Neut # (Auto) (1.4-5.7) K/uL Lymph # (Auto) (0.6-2.4) K/uL [place] # (Auto) (0.0-0.8) K/uL Eos # (Auto) (0.0-0.7) K/uL Baso # (Auto) (0.0-0.1) K/uL Add Manual Diff Neutrophils % (Manual) (48.0-80.0) % Band Neutrophils % % Lymphocytes % (Manual) (16.0-40.0) % Monocytes % (Manual) (0.0-15.0) % Eosinophils % (Manual) (0.0-7.0) % Metamyelocytes % % Nucleated RBC % /100WBC Absolute Seg Neuts (1.4-5.7) Band Neutrophils # Lymphocytes # (Manual) (0.6-2.4) Monocytes # (Manual) (0.0-0.8) Eosinophils # (Manual) (0.0-0.7) Absolute Metamyelocyte Nucleated RBCs # K/uL Smear Path Review SENT TO PATHOLOGY Absolute Retic (20-80) K/uL Percent Retic (0.5-1.5) % Immature Retic Fraction % INR APTT (18.6-31.3) SEC Sodium (136-145) mmol/L Potassium (3.5-5.1) mmol/L Chloride (98-107) mmol/L Carbon Dioxide (21.0-32.0) mmol/L BUN (7.0-18.0) mg/dL Creatinine (0.6-1.0) mg/dL Est Cr Clr Drug Dosing Estimated GFR (MDRD) ml/min Glucose (74-106) mg/dL Calcium (8.5-10.1) mg/dL Iron (50-175) ug/dL TIBC (250-450) ug/dL % Saturation (20-55) % Transferrin (200-400) ug/dL Ferritin (8-252) ng/mL Total Bilirubin (0.2-1.0) mg/dL AST (15-37) IU/L ALT (14-63) IU/L Alkaline Phosphatase (46-116) U/L Total Protein (6.4-8.2) g/dL Albumin (3.4-5.0) g/dL Globulin (2.0-3.5) g/dL Albumin/Globulin Ratio (1.3-2.8) Vitamin B12 197 (193-986) pg/mL Folate 18.60 (8.60-58.90) ng/mL Urine HCG, Qual (NEGATIVE) H. pylori IgG Antibody NEGATIVE (NEG) Blood Type Antibody Screen Crossmatch 02/03/18 02/04/18 02/04/18 Range/Units 19:15 04:50 04:50 WBC 20.64 H 16.96 H (4.0-11.0) K/uL RBC 2.79 L 3.55 L (4.30-5.90) M/uL Hgb 7.7 L 9.9 L (12.0-16.0) g/dL Hct 22.7 L 29.1 L (36.0-46.0) % MCV 81.4 82.0 (80.0-98.0) fL MCH 27.6 27.9 (27.0-32.0) pg MCHC 33.9 34.0 (31.0-37.0) g/dL RDW Std Deviation 46.4 49.5 (28.0-62.0) fl RDW Coeff of Bryan 16 H 17 H (11.0-15.0) % Plt Count 254 226 (150-400) K/uL MPV 8.20 8.40 (7.40-12.00) fL Neut % (Auto) 76.4 (48.0-80.0) % Lymph % (Auto) 17.8 (16.0-40.0) % [place] % (Auto) 5.7 (0.0-15.0) % Eos % (Auto) 0.0 (0.0-7.0) % Baso % (Auto) 0.1 (0.0-1.5) % Neut # (Auto) 15.7 H (1.4-5.7) K/uL Lymph # (Auto) 3.7 H (0.6-2.4) K/uL [place] # (Auto) 1.2 H (0.0-0.8) K/uL Eos # (Auto) 0.0 (0.0-0.7) K/uL Baso # (Auto) 0.0 (0.0-0.1) K/uL Add Manual Diff YES Neutrophils % (Manual) 70 (48.0-80.0) % Band Neutrophils % % Lymphocytes % (Manual) 23 (16.0-40.0) % Monocytes % (Manual) 6 (0.0-15.0) % Eosinophils % (Manual) (0.0-7.0) % Metamyelocytes % 1 % Nucleated RBC % 0.0 0.0 /100WBC Absolute Seg Neuts 11.9 H (1.4-5.7) Band Neutrophils # Lymphocytes # (Manual) 3.9 H (0.6-2.4) Monocytes # (Manual) 1.0 H (0.0-0.8) Eosinophils # (Manual) (0.0-0.7) Absolute Metamyelocyte 0.2 Nucleated RBCs # 0 0 K/uL Smear Path Review Absolute Retic (20-80) K/uL Percent Retic (0.5-1.5) % Immature Retic Fraction % INR APTT (18.6-31.3) SEC Sodium 139 (136-145) mmol/L Potassium 3.5 (3.5-5.1) mmol/L Chloride 110 H (98-107) mmol/L Carbon Dioxide 22.1 (21.0-32.0) mmol/L BUN 28 H (7.0-18.0) mg/dL Creatinine 0.7 (0.6-1.0) mg/dL Est Cr Clr Drug Dosing TNP Estimated GFR (MDRD) > 60.0 ml/min Glucose 91 (74-106) mg/dL Calcium 7.5 L (8.5-10.1) mg/dL Iron (50-175) ug/dL TIBC (250-450) ug/dL % Saturation (20-55) % Transferrin (200-400) ug/dL Ferritin (8-252) ng/mL Total Bilirubin (0.2-1.0) mg/dL AST (15-37) IU/L ALT (14-63) IU/L Alkaline Phosphatase (46-116) U/L Total Protein (6.4-8.2) g/dL Albumin (3.4-5.0) g/dL Globulin (2.0-3.5) g/dL Albumin/Globulin Ratio (1.3-2.8) Vitamin B12 (193-986) pg/mL Folate (8.60-58.90) ng/mL Urine HCG, Qual (NEGATIVE) H. pylori IgG Antibody (NEG) Blood Type Antibody Screen Crossmatch 02/04/18 Range/Units 08:35 WBC (4.0-11.0) K/uL RBC (4.30-5.90) M/uL Hgb (12.0-16.0) g/dL Hct (36.0-46.0) % MCV (80.0-98.0) fL MCH (27.0-32.0) pg MCHC (31.0-37.0) g/dL RDW Std Deviation (28.0-62.0) fl RDW Coeff of Bryan (11.0-15.0) % Plt Count (150-400) K/uL MPV (7.40-12.00) fL Neut % (Auto) (48.0-80.0) % Lymph % (Auto) (16.0-40.0) % [place] % (Auto) (0.0-15.0) % Eos % (Auto) (0.0-7.0) % Baso % (Auto) (0.0-1.5) % Neut # (Auto) (1.4-5.7) K/uL Lymph # (Auto) (0.6-2.4) K/uL [place] # (Auto) (0.0-0.8) K/uL Eos # (Auto) (0.0-0.7) K/uL Baso # (Auto) (0.0-0.1) K/uL Add Manual Diff Neutrophils % (Manual) (48.0-80.0) % Band Neutrophils % % Lymphocytes % (Manual) (16.0-40.0) % Monocytes % (Manual) (0.0-15.0) % Eosinophils % (Manual) (0.0-7.0) % Metamyelocytes % % Nucleated RBC % /100WBC Absolute Seg Neuts (1.4-5.7) Band Neutrophils # Lymphocytes # (Manual) (0.6-2.4) Monocytes # (Manual) (0.0-0.8) Eosinophils # (Manual) (0.0-0.7) Absolute Metamyelocyte Nucleated RBCs # K/uL Smear Path Review Absolute Retic (20-80) K/uL Percent Retic (0.5-1.5) % Immature Retic Fraction % INR APTT (18.6-31.3) SEC Sodium (136-145) mmol/L Potassium (3.5-5.1) mmol/L Chloride (98-107) mmol/L Carbon Dioxide (21.0-32.0) mmol/L BUN (7.0-18.0) mg/dL Creatinine (0.6-1.0) mg/dL Est Cr Clr Drug Dosing Estimated GFR (MDRD) ml/min Glucose (74-106) mg/dL Calcium (8.5-10.1) mg/dL Iron (50-175) ug/dL TIBC (250-450) ug/dL % Saturation (20-55) % Transferrin (200-400) ug/dL Ferritin (8-252) ng/mL Total Bilirubin (0.2-1.0) mg/dL AST (15-37) IU/L ALT (14-63) IU/L Alkaline Phosphatase (46-116) U/L Total Protein (6.4-8.2) g/dL Albumin (3.4-5.0) g/dL Globulin (2.0-3.5) g/dL Albumin/Globulin Ratio (1.3-2.8) Vitamin B12 (193-986) pg/mL Folate (8.60-58.90) ng/mL Urine HCG, Qual NEGATIVE (NEGATIVE) H. pylori IgG Antibody (NEG) Blood Type Antibody Screen Crossmatch Himanshu Results Last 24 Hours: Microbiology 02/03/18 21:03 Anaerobic Blood Culture - Final Blood - Arm, Left 02/03/18 14:30 Stool Occult Blood (HIMANSHU) - Final Stool / Feces POSITIVE OCCULT BLOOD Med Orders - Current: Current Medications Acetaminophen (Tylenol) 650 mg PO Q4H PRN PRN Reason: Fever Last Admin: 02/03/18 20:49 Dose: 650 mg Lactated Ringer's (Ringers, Lactated) 1,000 mls @ 125 mls/hr IV ASDIRECTED [facility] Last Admin: 02/04/18 02:56 Dose: 125 mls/hr Ondansetron HCl (Zofran) 4 mg IVPUSH Q4H PRN PRN Reason: Nausea Pantoprazole Sodium (Protonix Iv) 40 mg IVPUSH Q12H [facility] Last Admin: 02/04/18 00:38 Dose: 40 mg Sodium Chloride (Saline Flush) 10 ml FLUSH ASDIRECTED PRN PRN Reason: Keep Vein Open Sodium Chloride (Saline Flush) 2.5 ml FLUSH ASDIRECTED PRN PRN Reason: Keep Vein Open Discontinued Medications Lactated Ringer's (Ringers, Lactated) 1,000 mls @ 999 mls/hr IV .BOLUS ONE Stop: 02/03/18 13:19 Last Admin: 02/03/18 12:35 Dose: 999 mls/hr Pantoprazole Sodium 80 mg/ (Sodium Chloride) 100 mls @ 10 mls/hr IV .Continuous BRYSON Pantoprazole Sodium (Protonix Iv) 80 mg IVPUSH .BOLUS ONE Stop: 02/03/18 13:11 Last Admin: 02/03/18 13:26 Dose: 80 mg - Exam Quality Assessment: DVT Prophylaxis (SCDs) General: Alert, Oriented, Cooperative, No Acute Distress Neck: Supple Lungs: Clear to Auscultation, Normal Respiratory Effort Cardiovascular: Regular Rate, Regular Rhythm GI/Abdominal Exam: Normal Bowel Sounds, Soft, Non-Tender, No Organomegaly, No Distention, No Abnormal Bruit, No Mass, Pelvis Stable Extremities: Normal Inspection, Normal Range of Motion, Non-Tender, No Pedal Edema, Normal Capillary Refill Neurological: No New Focal Deficit Psy/Mental Status: Alert, Normal Affect, Normal Mood - Problem List & Annotations (1) GI bleed SNOMED Code(s): 09156422 Code(s): K92.2 - GASTROINTESTINAL HEMORRHAGE, UNSPECIFIED Status: Acute Current Visit: Yes Qualifiers: GI bleed type/associated pathology: unspecified gastrointestinal hemorrhage type Qualified Code(s): K92.2 - Gastrointestinal hemorrhage, unspecified (2) Symptomatic anemia SNOMED Code(s): 892805445 Code(s): D64.9 - ANEMIA, UNSPECIFIED Status: Acute Current Visit: Yes (3) Hypotension SNOMED Code(s): 35026433 Code(s): I95.9 - HYPOTENSION, UNSPECIFIED Status: Acute Current Visit: Yes (4) Tachycardia SNOMED Code(s): 1365327 Code(s): R00.0 - TACHYCARDIA, UNSPECIFIED Status: Acute Current Visit: Yes (5) HTN (hypertension) SNOMED Code(s): 15351347 Code(s): I10 - ESSENTIAL (PRIMARY) HYPERTENSION Status: Chronic Current Visit: Yes (6) Uterine fibroid SNOMED Code(s): 37670113 Code(s): D25.9 - LEIOMYOMA OF UTERUS, UNSPECIFIED Status: Acute Current Visit: Yes Qualifiers: Uterine leiomyoma location: unspecified location Qualified Code(s): D25.9 - Leiomyoma of uterus, unspecified - Problem List Review Problem List Initiated/Reviewed/Updated: Yes - My Orders Last 24 Hours: My Active Orders 02/03/18 13:42 CDIFF TOX A+B [OP] Routine CULTURE STOOL + CAMPY+SHIGATOX [RM] Routine WBC, STOOL [OP] Routine 02/03/18 14:09 Intake and Output [RC] Q12H Up With Assistance [RC] ASDIRECTED Vital Signs [RC] Q4H Consult to Physician [CONS] Routine Ondansetron [Zofran] 4 mg IVPUSH Q4H PRN Resuscitation Status Routine 02/03/18 14:10 Sequential Compression Device [OM.PC] Per Unit Routine 02/03/18 14:11 Notify Provider Consults [RC] ASDIRECTED 02/03/18 14:14 Telemetry Monitoring [Cardiac Monitoring] [RC] Q8H 02/03/18 14:15 Lactated Ringers [Ringers, Lactated] 1,000 ml IV ASDIRECTED 02/03/18 17:22 Communication Order [RC] PRN 02/03/18 Dinner NPO [Nothing Per Oral Diet] [DIET] 02/04/18 01:00 Pantoprazole [ProTONIX IV] 40 mg IVPUSH Q12H - Plan Plan:: This 42 year old female admitted with GI bleed and symptomatic anemia 1. GI bleed: Suspected to be upper GI bleed. Transfuse 4 units overnight, hgb 9.9 this morning. Continue Protonix 40 mg IV BID for now. NPO with ice chips. H pylori negative. No abdominal pain. Hemoccult positive. Stool studies pending. Consult Dr Duran, general surgery for possible EGD. EGD to be completed today. patient has described different drinking habits to providers. This may be alcohol related. Encouraged her to stop drinking, but continues to say she does not drink "much". 2. Symptomatic anemia: Transfused as above. Likely acute on chronic. CHronic anemia may be secondary to uterine fibroid and irregular/heavy menses. She will be set up with JUSTOWRITER OPERATOR at discharge. Will give Venofer prior to discharge. Iron studies reveal Iron deficiency anemia and confirmed with peripheral smear. 3. Leukocytosis: CXR negative. Ua still pending. Abdominal CT revealed no acute abdominal or pelvis findings. It did note hypodense blood suggesting anemia, small uterine fibroid and mild diverticulosis without evidence of diverticulitis. leukocytosis may be related to stress response from anemia. Leukocytosis continues to improve, 16,000 today. Did have mild temp elevation with blood transfusion, BC obtained. No reaction noted. 4. HTN: Not treated with medications. Monitor. No nicotine replacement at this time due to tachycardia and acute GI bleeding. VTE prophylaxis: SCDs only due to acute GI bleed and anemia Dispo: 2-3 days pending improvement. Will need follow up with PCP, JUSTOWRITER OPERATOR related to heavy menses and uterine fibroid as well as general surgery for colonoscopy.
[2018-02-04] MEDS ORDERED: Propofol 200 MG/20 ML SDV ONE (11:26)
[2018-02-04] MEDS ORDERED: fentaNYL 100 MCG/2 ML SDV ONE (11:26)
[2018-02-04] MEDS ORDERED: Midazolam 1 MG/ML 2 ML SDV ONE (11:26)
[2018-02-04] MEDS ORDERED: Lidocaine 2% 5 ML SDV ONE (11:26)
--- NOTE | 2018-02-04 13:03 | PCM.OPNOTE ---
- General Post-Op/Procedure Note Date of Surgery/Procedure: 02/04/18 Operative Procedure(s): Diagnostic EGD with biopsy Findings: Ulcer in the posterior portion of the first portion on the duodenum with small central clot. Gastritis. Hiatal hernia. Pre Op Diagnosis: GI bleed Post-Op Diagnosis: 1) Duodenal ulcer. 2) Gastritis. 3) Hiatal hernia Anesthesia Technique: MAC Primary Surgeon: Renetta Duran Condition: Fair Free Text/Narrative:: Intake & Output 02/03/18 02/04/18 02/04/18 22:59 06:59 14:59 Intake Total 722 688 350 Output Total 400 Balance 322 688 350
[2018-02-04] MEDS ORDERED: Iron Sucrose Complex 100 MG/5 ML SDV IVPUSH ONE (13:04)
--- NOTE | 2018-02-04 13:07 | PCM.SN ---
- Free Text/Narrative Note: Patient found to have an ulcer along the posterior aspect of the first portion of the duodenum. There was a central adherent clot. No biopsies taken of this area. The gastric mucosa appeared moderately inflammed. Biopsies taken of gastric antrum, body and fundus. Hiatal hernia with no evidence of reflux. Would recommend transitioning to oral protonix. She should be on 40mg per day for two months. Would start sucralfate 1gm tab QID before meals and before bed. She should do this for two weeks. She can advance diet as tolerated. She can follow up with me in clinic in 2 weeks. She will need to have follow up with gynecology as well regarding her menorrhagia. Will sign off at this time. Please call me or the software controls engineer surgeon if there are any issues.
--- NOTE | 2018-02-04 13:31 | PCM.POSTAN ---
POST ANESTHESIA ASSESSMENT - MENTAL STATUS Mental Status: Alert, Oriented - RESPIRATORY Respiratory Status: Respiratory Rate WNL, Airway Patent, O2 Saturation Stable - CARDIOVASCULAR CV Status: Pulse Rate WNL, Blood Pressure Stable - GASTROINTESTINAL GI Status: No Symptoms - PAIN Pain Score: 0 - POST OP HYDRATION Hydration Status: Adequate & Stable
--- NOTE | 2018-02-04 13:31 | PCM48HPAN ---
Post Anesthesia Note - EVALUATION WITHIN 48HRS OF ANESTHETIC Vital Signs in Normal Range: Yes Patient Participated in Evaluation: Yes Respiratory Function Stable: Yes Airway Patent: Yes Cardiovascular Function Stable: Yes Hydration Status Stable: Yes Pain Control Satisfactory: Yes Nausea and Vomiting Control Satisfactory: Yes Mental Status Recovered: Yes Resp Rate: 15 Temperature: 37.4 C
[2018-02-04] MEDS ORDERED: SODIUM FERRIC GLUCONAT IV ONE ×2 (14:00)
[2018-02-04] MEDS ORDERED: SODIUM CHLORIDE 0.9% IV ONE ×2 (14:00)
[2018-02-04] MEDS ORDERED: SUCROSE IV ONE ×2 (14:00)
--- NOTE | 2018-02-04 14:28 | OR ---
SURGEON: WOOD RICHARDS MD DATE OF PROCEDURE: 02/04/2018 PREOPERATIVE DIAGNOSIS: Gastrointestinal bleed. POSTOPERATIVE DIAGNOSES: 1. Duodenal ulcer. 2. Gastritis. 3. Hiatal hernia. PROCEDURE PERFORMED: Diagnostic esophagogastroduodenoscopy with biopsies. ANESTHESIA: Monitored anesthesia care. INSTRUMENT USED: Olympus endoscope. EXTENT OF EXAM: Second portion of the duodenum. PREPARATION: Good. LIMITATIONS: None. INDICATION FOR EXAMINATION: The patient is a 42-year-old female, who presented with [id number] anemia and fecal occult positive stool. The decision was made to perform a diagnostic EGD to look for source of upper GI bleed. We discussed the procedure, expected perioperative course, and risks including bleeding or perforation. The patient verbalized understanding and wishes to proceed. PROCEDURE IN DETAIL: The patient was brought to the OR and placed on the OR table in a beach chair position. A time-out was completed verifying the patient's name, age, date of , allergies, and procedure to be performed. Monitored anesthesia care was induced and a bite block was placed in the patient's mouth. Continuous oxygen was provided via nasal cannula throughout the procedure. After adequate sedation was achieved, a well lubricated endoscope was placed in the patient's mouth and advanced under direct visualization to the second portion of duodenum. This appeared normal and a photograph was taken. The scope was then fully withdrawn while examining the color, texture, anatomy, and integrity of the mucosa of the upper GI tract. In the first portion of the duodenum along the posterior wall, the patient was found to have an ulcer with a small adherent central clot. Photographs were taken of this. Given the clot on top of the ulcer, no biopsies were taken. The scope was then brought into the stomach and a photograph was taken of the pylorus as well as the GE junction. The patient was noted to have a hiatal hernia. Biopsies were taken of the gastric antrum, body, and fundus, and sent for H. pylori testing and histologic review. The gastric mucosa itself appeared moderately inflamed. There was no ulceration noted within the stomach. The scope was brought into the distal esophagus. A photograph was taken of the hiatal hernia sac as well as the area right above the hiatal hernia. The sac itself did not appear grossly inflamed. There were no ulcers. The distal esophagus showed no evidence of esophagitis that would suggest reflux. The remainder of the esophageal mucosa appeared normal. The scope was then removed from the patient and the procedure terminated. The patient was transferred to the PACU in stable condition. ENDOSCOPIC DIAGNOSES: 1. Duodenal ulcer. 2. Gastritis. 3. Hiatal hernia. RECOMMENDATIONS: The patient can transition to oral Protonix 40 mg daily and should start sucralfate 1 g tablets q.i.d. Will follow up on the pathology results. The patient can advance diet as tolerated. We will see the patient in clinic in 2 weeks. AIYANA LEYVA /[id number] MTDD
[2018-02-04] MEDS: Sucralfate 1 GM Tab PO SCH ×2 (16:15→20:57)
[2018-02-04] MEDS: Iron Polysaccharides Complex 150 MG Cap PO SCH (20:57)
[2018-02-04] MEDS: Acetaminophen 325 MG Tab PO PRN (21:05)
[2018-02-05] MEDS: Pantoprazole 40 MG Vial IVPUSH SCH ×2 (02:26→13:02)
[2018-02-05 06:51] LABS: CHLORIDE,CL 111 mmol/L (98-107); SODIUM,NA 141 mmol/L (136-145)
[2018-02-05] MEDS: Sucralfate 1 GM Tab PO SCH ×2 (06:53→11:20)
[2018-02-05] MEDS: Iron Polysaccharides Complex 150 MG Cap PO SCH (08:43)
[2018-02-05 11:48] VITALS: BP 141/95
--- NOTE | 2018-02-05 14:09 | PCM.DCSUM1 ---
Discharge Summary - Discharge Data Discharge Date: 02/05/18 Discharge Disposition: Home, Self-Care 01 Condition: Good - Patient Summary/Data Operative Procedure(s) Performed: Diagnostic EGD with biopsy Consults: Consultations 02/03/18 14:09 Consult to Physician [CONS] Routine Hospital Course: Admission diagnosis Anemia from acute bleed Upper GI bleed Duodenal ulcer Gastritis Hospital Course: 42 yo female with pmh of HTN, who was admitted for upper GI bleed. She presented with large black bloody bowel movement. She was found to be hypotensive with BP of 90s/50s and HR of 130s. She had a leukocytosis of 26, 000 and Hgb of 5.0. She was rescucitated with IV fluids and blood. She was treated with IV protonix. She was transfused 4 units of pRBCs. Her blood pressure normalized and leukocytosis improve after resuscitation. She had a CT scan of abdomen which did report any acute findings. She had diverticulosis and uterne fibroid. She had an EGD by Dr. Duran which revealed a duodenal ulcer and gastritis. Her hgb has remained stale at 9.7 on her third hospiatl day. She is to be discharge to follow up with [facility], Dr. Duran. A refere was made to Dr. Almaraz due to heavy menses, uterine fibroid and concern that this also could be contributing to her anemia. - Patient Instructions Diet: Regular Diet as Tolerated - Discharge Plan Prescriptions/Med Rec: Iron Polysaccharides Complex [Ferrex 150] 150 mg PO BID #30 cap Pantoprazole Sodium [Protonix] 40 mg PO DAILY #30 tablet. Sucralfate [Carafate] 1 gm PO TID #60 tablet Home Medications: Home Meds Iron Polysaccharides Complex [Ferrex 150] 150 mg PO BID #30 cap 02/05/18 [Rx] Pantoprazole Sodium [Protonix] 40 mg PO DAILY #30 tablet. 02/05/18 [Rx] Sucralfate [Carafate] 1 gm PO TID #60 tablet 02/05/18 [Rx] Patient Handouts: Blood Transfusion, Adult, [id number], Gastrointestinal Bleeding, Polysaccharide-Iron Complex tablets or capsules, Sucralfate tablets, Pantoprazole tablets Referrals: Meño Almaraz MD [Physician] - 02/18/18 10:45 am Vish Villarreal MD [Resident] - 02/16/18 1:00 pm Renetta Duran MD [Physician] - 02/16/18 1:30 pm - Patient Data Vitals - Most Recent: Last Vital Signs Temp 37.6 C 02/05/18 11:00 Pulse 98 02/05/18 11:00 Resp 18 02/05/18 11:00 BP 141/95 H 02/05/18 11:00 Pulse Ox 99 02/05/18 11:00 Weight - Most Recent: 55.021 kg I&O - Last 24 hours: Intake & Output 02/04/18 02/05/18 02/05/18 22:59 06:59 14:59 Intake Total 1940 700 Output Total 1220 1550 Balance 720 -850 Lab Results - Last 24 hrs: Laboratory Results - last 24 hr 02/05/18 02/05/18 Range/Units 06:12 06:12 WBC 13.45 H (4.0-11.0) K/uL RBC 3.42 L (4.30-5.90) M/uL Hgb 9.7 L (12.0-16.0) g/dL Hct 28.7 L (36.0-46.0) % MCV 83.9 (80.0-98.0) fL MCH 28.4 (27.0-32.0) pg MCHC 33.8 (31.0-37.0) g/dL RDW Std Deviation 51.6 (28.0-62.0) fl RDW Coeff of Bryan 17 H (11.0-15.0) % Plt Count 260 (150-400) K/uL MPV 8.20 (7.40-12.00) fL Neut % (Auto) 68.8 (48.0-80.0) % Lymph % (Auto) 18.6 (16.0-40.0) % [place] % (Auto) 11.7 (0.0-15.0) % Eos % (Auto) 0.6 (0.0-7.0) % Baso % (Auto) 0.3 (0.0-1.5) % Neut # (Auto) 9.3 H (1.4-5.7) K/uL Lymph # (Auto) 2.5 H (0.6-2.4) K/uL [place] # (Auto) 1.6 H (0.0-0.8) K/uL Eos # (Auto) 0.1 (0.0-0.7) K/uL Baso # (Auto) 0.0 (0.0-0.1) K/uL Nucleated RBC % 0.0 /100WBC Nucleated RBCs # 0 K/uL Sodium 141 (136-145) mmol/L Potassium 3.4 L (3.5-5.1) mmol/L Chloride 111 H (98-107) mmol/L Carbon Dioxide 23.3 (21.0-32.0) mmol/L BUN 13 (7.0-18.0) mg/dL Creatinine 0.6 (0.6-1.0) mg/dL Est Cr Clr Drug Dosing TNP Estimated GFR (MDRD) > 60.0 ml/min Glucose 98 (74-106) mg/dL Calcium 7.7 L (8.5-10.1) mg/dL Total Bilirubin 0.2 (0.2-1.0) mg/dL AST 15 (15-37) IU/L ALT 11 L (14-63) IU/L Alkaline Phosphatase 29 L (46-116) U/L Total Protein 4.5 L (6.4-8.2) g/dL Albumin 2.1 L (3.4-5.0) g/dL Globulin 2.4 (2.0-3.5) g/dL Albumin/Globulin Ratio 0.9 L (1.3-2.8) CAMILA Results - Last 24 hrs: Microbiology 02/03/18 20:10 Campylobacter Antigen Assay - Final Stool / Feces NEGATIVE CAMPYLOBACTER AG - Final NEGATIVE FOR SHIGA TOXIN 1 - Final NEGATIVE FOR SHIGA TOXIN 2 02/03/18 20:55 Aerobic Blood Culture - Preliminary Blood - Arm, Right NO GROWTH AFTER 1 DAY Anaerobic Blood Culture - Preliminary NO GROWTH AFTER 1 DAY 02/03/18 20:10 Clostridium difficile Toxin A & B - Final Stool / Feces Negative for C.Diff Toxin/AG Stool for WBCs - Final POSITIVE FOR WBC'S 02/03/18 21:03 Aerobic Blood Culture - Preliminary Blood - Arm, Left NO GROWTH AFTER 1 DAY Anaerobic Blood Culture - Final Med Orders - Current: Current Medications Acetaminophen (Tylenol) 650 mg PO Q4H PRN PRN Reason: Fever Last Admin: 02/04/18 21:05 Dose: 650 mg Ondansetron HCl (Zofran) 4 mg IVPUSH Q4H PRN PRN Reason: Nausea Pantoprazole Sodium (Protonix Iv) 40 mg IVPUSH Q12H [facility] Last Admin: 02/05/18 13:02 Dose: 40 mg Polysaccharide Iron Complex (Ferrex 150) 150 mg PO BID [facility] Last Admin: 02/05/18 08:43 Dose: 150 mg Sodium Chloride (Saline Flush) 10 ml FLUSH ASDIRECTED PRN PRN Reason: Keep Vein Open Sodium Chloride (Saline Flush) 2.5 ml FLUSH ASDIRECTED PRN PRN Reason: Keep Vein Open Sucralfate (Carafate) 1 gm PO QIDACANDBED [facility] Last Admin: 02/05/18 11:20 Dose: 1 gm Discontinued Medications Fentanyl (Sublimaze) Confirm Administered Dose 100 mcg .ROUTE .STK-MED ONE Stop: 02/04/18 11:27 Lactated Ringer's (Ringers, Lactated) 1,000 mls @ 999 mls/hr IV .BOLUS ONE Stop: 02/03/18 13:19 Last Admin: 02/03/18 12:35 Dose: 999 mls/hr Pantoprazole Sodium 80 mg/ (Sodium Chloride) 100 mls @ 10 mls/hr IV .Continuous [facility] Lactated Ringer's (Ringers, Lactated) 1,000 mls @ 125 mls/hr IV ASDIRECTED [facility] Last Admin: 02/04/18 02:56 Dose: 125 mls/hr Sodium Ferric Gluconat/Sucrose (250 mg/ Sodium Chloride) 120 mls @ 120 mls/hr IV ONETIME ONE Stop: 02/04/18 14:59 Last Admin: 02/04/18 13:37 Dose: 120 mls/hr Lidocaine (Xylocaine-Mpf 2%) Confirm Administered Dose 10 ml .ROUTE .STK-MED ONE Stop: 02/04/18 11:27 Midazolam HCl (Versed 1 Mg/Ml) Confirm Administered Dose 2 mg .ROUTE .STK-MED ONE Stop: 02/04/18 11:27 Pantoprazole Sodium (Protonix Iv) 80 mg IVPUSH .BOLUS ONE Stop: 02/03/18 13:11 Last Admin: 02/03/18 13:26 Dose: 80 mg Propofol (Diprivan 20 Ml) Confirm Administered Dose 400 mg .ROUTE .[facility]-MED ONE Stop: 02/04/18 11:27 *Q Meaningful Use (DIS) - VTE *Q VTE Pharmacological Contraindications *Q: Risk of Bleeding
--- NOTE | 2018-03-13 07:23 | EDM.PDOC ---
ED HPI GENERAL MEDICAL PROBLEM - General Chief Complaint: Gastrointestinal Problem Stated Complaint: DIZZINESS Time Seen by Provider: 02/03/18 11:49 Source of Information: Reports: Patient History Limitations: Reports: No Limitations - History of Present Illness INITIAL COMMENTS - FREE TEXT/NARRATIVE: History of present illness: []Patient presents today after having a large bloody stool, weakness and dizziness. She has been taking excessive Excedrin for headaches in the past 2 weeks. She does have a history of anemia has had a transfusion in the past. She denies any vomiting of blood or abdominal pain. She denies any recent illnesses no chest pain fevers chills or diarrhea. Review of systems: As per history of present illness and below otherwise all systems reviewed and negative. Past medical history: As per history of present illness and as reviewed below otherwise noncontributory. Surgical history: As per history of present illness and as reviewed below otherwise noncontributory. Social history: No reported history of drug or alcohol abuse. Family history: As per history of present illness and as reviewed below otherwise noncontributory. Physical exam: General: Well developed, well nourished in NAD pale HEENT: Atraumatic, normocephalic, pupils reactive, negative for conjunctival pallor or scleral icterus, mucous membranes moist, throat clear, neck supple, nontender, trachea midline. Lungs: Clear to auscultation, breath sounds equal bilaterally, chest nontender. Heart: S1S2, regular, negative for clicks, rubs, or JVD. Abdomen: Soft, nondistended, nontender. Negative for masses or hepatosplenomegaly. Negative for costovertebral tenderness. Pelvis: Stable nontender. Genitourinary: Deferred. Rectal: Guaiac positive Extremities: Atraumatic, negative for cords or calf pain. Neurovascular unremarkable. Neuro: Awake, alert, oriented. Cranial nerves II through XII unremarkable. Cerebellum unremarkable. Motor and sensory unremarkable throughout. Exam nonfocal. Diagnostics: []CBC elevated white count 26,000 with H&H of 5/15, chemistries show normal electrolytes except CO2 is 18 BUN is 50 Therapeutics: []IV hydration and blood products ordered Protonix bolus and drip started in the ER Impression: []GI bleed Plan: []Admit to hospitalist service to ICU for transfusion and further workup Definitive disposition and diagnosis as appropriate pending reevaluation and review of above. - Related Data Allergies Allergy/AdvReac Type Severity Reaction Status Date / Time No Known Allergies Allergy Verified 02/03/18 12:12 Home Meds: Home Meds Iron Polysaccharides Complex [Ferrex 150] 150 mg PO BID #30 cap 02/05/18 [Rx] Pantoprazole Sodium [Protonix] 40 mg PO DAILY #30 tablet. 02/05/18 [Rx] Sucralfate [Carafate] 1 gm PO TID #60 tablet 02/05/18 [Rx] Past Medical History HEENT History: Reports: None Cardiovascular History: Reports: Hypertension. Denies: Afib, Blood Clots/VTE/ DVT, CAD, NC Respiratory History: Reports: None. Denies: Asthma, COPD Gastrointestinal History: Reports: GI Bleed. 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 Musculoskeletal History: Reports: None Neurological History: Reports: None. Denies: CVA, Migraines, TIA Psychiatric History: Reports: None Endocrine/Metabolic History: Reports: None. Denies: Diabetes, Type II, Hypothyroidism Hematologic History: Reports: Anemia (Symptomatic), Blood Transfusion(s) (x 4 this admission) Immunologic History: Reports: None Oncologic (Cancer) History: Reports: None Dermatologic History: Reports: None - Infectious Disease History Infectious Disease History: Reports: Chicken Pox - Past Surgical History GI Surgical History: Reports: Other (See Below) (surgical repair of spleen laceration in 2006, still has spleen) Female Surgical History: Reports: Section Social & Family History - Family History Family Medical History: Noncontributory - Tobacco Use Smoking Status *Q: Current Every Day Smoker Years of Tobacco use: 15 Packs/Tins Daily: 1 Second Hand Smoke Exposure: Yes - Caffeine Use Caffeine Use: Reports: Coffee - Alcohol Use Days Per Week of Alcohol Use: 5 Number of Drinks Per Day: 2 Total Drinks Per Week: 10 - Recreational Drug Use Recreational Drug Use: No Recreational Drug Type: Reports: Marijuana/Hashish ED ROS GENERAL - Review of Systems Review Of Systems: See Below (See history of present illness) ED EXAM, GI/ABD - Physical Exam Exam: See Below (See history of present illness) Course - Vital Signs Last Recorded V/S: Last Vital Signs Temp 99.6 F 02/05/18 11:00 Pulse 98 02/05/18 11:00 Resp 18 02/05/18 11:00 BP 141/95 H 02/05/18 11:00 Pulse Ox 99 02/05/18 11:00 - Orders/Labs/Meds Labs: Laboratory Tests 02/03/18 02/03/18 02/03/18 Range/Units 12:08 12:08 12:08 WBC 26.41 H (4.0-11.0) K/uL RBC 1.83 L (4.30-5.90) M/uL Hgb 5.0 L (12.0-16.0) g/dL Hct 15.8 L (36.0-46.0) % MCV 86.3 (80.0-98.0) fL MCH 27.3 (27.0-32.0) pg MCHC 31.6 (31.0-37.0) g/dL RDW Std Deviation 47.3 (28.0-62.0) fl RDW Coeff of Bryan 15 (11.0-15.0) % Plt Count 353 (150-400) K/uL MPV 8.30 (7.40-12.00) fL Add Manual Diff YES Neutrophils % (Manual) 70 (48.0-80.0) % Band Neutrophils % 11 % Lymphocytes % (Manual) 17 (16.0-40.0) % Monocytes % (Manual) 1 (0.0-15.0) % Eosinophils % (Manual) 1 (0.0-7.0) % Nucleated RBC % 0.0 /100WBC Absolute Seg Neuts 18.5 H (1.4-5.7) Band Neutrophils # 2.9 Lymphocytes # (Manual) 4.5 H (0.6-2.4) Monocytes # (Manual) 0.3 (0.0-0.8) Eosinophils # (Manual) 0.3 (0.0-0.7) Nucleated RBCs # 0 K/uL Smear Path Review Absolute Retic (20-80) K/uL Percent Retic (0.5-1.5) % Immature Retic Fraction % INR 1.01 APTT 20.2 (18.6-31.3) SEC Sodium 140 (136-145) mmol/L Potassium 3.8 (3.5-5.1) mmol/L Chloride 110 H (98-107) mmol/L Carbon Dioxide 18.0 L (21.0-32.0) mmol/L BUN 51 H (7.0-18.0) mg/dL Creatinine 0.9 (0.6-1.0) mg/dL Est Cr Clr Drug Dosing TNP Estimated GFR (MDRD) > 60.0 ml/min Glucose 145 H (74-106) mg/dL Calcium 7.6 L (8.5-10.1) mg/dL Iron (50-175) ug/dL TIBC (250-450) ug/dL % Saturation (20-55) % Transferrin (200-400) ug/dL Ferritin (8-252) ng/mL Total Bilirubin 0.1 L (0.2-1.0) mg/dL AST 12 L (15-37) IU/L ALT 12 L (14-63) IU/L Alkaline Phosphatase 24 L (46-116) U/L Total Protein 4.4 L (6.4-8.2) g/dL Albumin 2.1 L (3.4-5.0) g/dL Globulin 2.3 (2.0-3.5) g/dL Albumin/Globulin Ratio 0.9 L (1.3-2.8) Vitamin B12 (193-986) pg/mL Folate (8.60-58.90) ng/mL H. pylori IgG Antibody (NEG) Blood Type Antibody Screen Crossmatch 02/03/18 02/03/18 02/03/18 Range/Units 12:08 12:08 12:08 WBC (4.0-11.0) K/uL RBC 1.83 L (4.30-5.90) M/uL Hgb (12.0-16.0) g/dL Hct (36.0-46.0) % MCV (80.0-98.0) fL MCH (27.0-32.0) pg MCHC (31.0-37.0) g/dL RDW Std Deviation (28.0-62.0) fl RDW Coeff of Bryan (11.0-15.0) % Plt Count (150-400) K/uL MPV (7.40-12.00) fL Add Manual Diff Neutrophils % (Manual) (48.0-80.0) % Band Neutrophils % % Lymphocytes % (Manual) (16.0-40.0) % Monocytes % (Manual) (0.0-15.0) % Eosinophils % (Manual) (0.0-7.0) % Nucleated RBC % /100WBC Absolute Seg Neuts (1.4-5.7) Band Neutrophils # Lymphocytes # (Manual) (0.6-2.4) Monocytes # (Manual) (0.0-0.8) Eosinophils # (Manual) (0.0-0.7) Nucleated RBCs # K/uL Smear Path Review Absolute Retic 48.90 (20-80) K/uL Percent Retic 2.7 H (0.5-1.5) % Immature Retic Fraction 15 % INR APTT (18.6-31.3) SEC Sodium (136-145) mmol/L Potassium (3.5-5.1) mmol/L Chloride (98-107) mmol/L Carbon Dioxide (21.0-32.0) mmol/L BUN (7.0-18.0) mg/dL Creatinine (0.6-1.0) mg/dL Est Cr Clr Drug Dosing Estimated GFR (MDRD) ml/min Glucose (74-106) mg/dL Calcium (8.5-10.1) mg/dL Iron 24 L (50-175) ug/dL TIBC 269 (250-450) ug/dL % Saturation 8.92 L (20-55) % Transferrin 188 L (200-400) ug/dL Ferritin 6 L (8-252) ng/mL Total Bilirubin (0.2-1.0) mg/dL AST (15-37) IU/L ALT (14-63) IU/L Alkaline Phosphatase (46-116) U/L Total Protein (6.4-8.2) g/dL Albumin (3.4-5.0) g/dL Globulin (2.0-3.5) g/dL Albumin/Globulin Ratio (1.3-2.8) Vitamin B12 (193-986) pg/mL Folate (8.60-58.90) ng/mL H. pylori IgG Antibody (NEG) Blood Type A POSITIVE Antibody Screen NEGATIVE Crossmatch See Detail 02/03/18 02/03/18 02/03/18 Range/Units 12:08 12:08 12:08 WBC (4.0-11.0) K/uL RBC (4.30-5.90) M/uL Hgb (12.0-16.0) g/dL Hct (36.0-46.0) % MCV (80.0-98.0) fL MCH (27.0-32.0) pg MCHC (31.0-37.0) g/dL RDW Std Deviation (28.0-62.0) fl RDW Coeff of Bryan (11.0-15.0) % Plt Count (150-400) K/uL MPV (7.40-12.00) fL Add Manual Diff Neutrophils % (Manual) (48.0-80.0) % Band Neutrophils % % Lymphocytes % (Manual) (16.0-40.0) % Monocytes % (Manual) (0.0-15.0) % Eosinophils % (Manual) (0.0-7.0) % Nucleated RBC % /100WBC Absolute Seg Neuts (1.4-5.7) Band Neutrophils # Lymphocytes # (Manual) (0.6-2.4) Monocytes # (Manual) (0.0-0.8) Eosinophils # (Manual) (0.0-0.7) Nucleated RBCs # K/uL Smear Path Review SENT TO PATHOLOGY Absolute Retic (20-80) K/uL Percent Retic (0.5-1.5) % Immature Retic Fraction % INR APTT (18.6-31.3) SEC Sodium (136-145) mmol/L Potassium (3.5-5.1) mmol/L Chloride (98-107) mmol/L Carbon Dioxide (21.0-32.0) mmol/L BUN (7.0-18.0) mg/dL Creatinine (0.6-1.0) mg/dL Est Cr Clr Drug Dosing Estimated GFR (MDRD) ml/min Glucose (74-106) mg/dL Calcium (8.5-10.1) mg/dL Iron (50-175) ug/dL TIBC (250-450) ug/dL % Saturation (20-55) % Transferrin (200-400) ug/dL Ferritin (8-252) ng/mL Total Bilirubin (0.2-1.0) mg/dL AST (15-37) IU/L ALT (14-63) IU/L Alkaline Phosphatase (46-116) U/L Total Protein (6.4-8.2) g/dL Albumin (3.4-5.0) g/dL Globulin (2.0-3.5) g/dL Albumin/Globulin Ratio (1.3-2.8) Vitamin B12 197 (193-986) pg/mL Folate 18.60 (8.60-58.90) ng/mL H. pylori IgG Antibody NEGATIVE (NEG) Blood Type Antibody Screen Crossmatch Meds: Medications Discontinued Medications Generic Name Dose Route Start Last Admin Trade Name Freq PRN Reason Stop Dose Admin Acetaminophen 650 mg 02/03/18 20:40 02/04/18 21:05 Tylenol PO 650 mg Q4H PRN Administration Fever Fentanyl Confirm 02/04/18 11:26 Sublimaze Administered 02/04/18 11:27 Dose 100 mcg .ROUTE .STK-MED ONE Lactated Ringer's 1,000 mls @ 999 mls/hr 02/03/18 12:19 02/03/18 12:35 Ringers, Lactated IV 02/03/18 13:19 999 mls/hr .BOLUS ONE Administration Pantoprazole Sodium 80 mg/ 100 mls @ 10 mls/hr 02/03/18 13:15 Sodium Chloride IV .Continuous [facility] Lactated Ringer's 1,000 mls @ 125 mls/hr 02/03/18 14:15 02/04/18 02:56 Ringers, Lactated IV 125 mls/hr ASDIRECTED [facility] Administration Sodium Ferric Gluconat/Sucrose 120 mls @ 120 mls/hr 02/04/18 14:00 02/04/18 13:37 250 mg/ Sodium Chloride IV 02/04/18 14:59 120 mls/hr ONETIME ONE Administration Lidocaine Confirm 02/04/18 11:26 Xylocaine-Mpf 2% Administered 02/04/18 11:27 Dose 10 ml .ROUTE .STK-MED ONE Midazolam HCl Confirm 02/04/18 11:26 Versed 1 Mg/Ml Administered 02/04/18 11:27 Dose 2 mg .ROUTE .STK-MED ONE Ondansetron HCl 4 mg 02/03/18 14:09 Zofran IVPUSH Q4H PRN Nausea Pantoprazole Sodium 80 mg 02/03/18 13:10 02/03/18 13:26 Protonix Iv IVPUSH 02/03/18 13:11 80 mg .BOLUS ONE Administration Pantoprazole Sodium 40 mg 02/04/18 01:00 02/05/18 13:02 Protonix Iv IVPUSH 40 mg Q12H [facility] Administration Polysaccharide Iron Complex 150 mg 02/04/18 21:00 02/05/18 08:43 Ferrex 150 PO 150 mg BID [facility] Administration Propofol Confirm 02/04/18 11:26 Diprivan 20 Ml Administered 02/04/18 11:27 Dose 400 mg .ROUTE .STK-MED ONE Sodium Chloride 10 ml 02/03/18 12:18 Saline Flush FLUSH ASDIRECTED PRN Keep Vein Open Sodium Chloride 2.5 ml 02/03/18 12:18 Saline Flush FLUSH ASDIRECTED PRN Keep Vein Open Sucralfate 1 gm 02/04/18 17:00 02/05/18 11:20 Carafate PO 1 gm QIDACANDBED [facility] Administration Departure - Departure Time of Disposition: 07:23 Disposition: Home, Self-Care 01 Condition: Good, Fair Clinical Impression: GI bleed Qualifiers: GI bleed type/associated pathology: unspecified gastrointestinal hemorrhage type Qualified Code(s): K92.2 - Gastrointestinal hemorrhage, unspecified - Discharge Information
== END 2018-02-05 14:05 | disposition home or self-care (01) | DRG 379 ==
LOC: MW.ED 11:40 → MW.MS 13:10
PROVIDERS: ADMIT Internal Medicine; ATTEND Internal Medicine
PROC: 30233N1 Transfusion of Nonautologous Red Blood Cells into Peripheral Vein, Percutaneous Approach (ICD-10-PCS; 2018-02-03)
PROC: 0DB68ZX Excision of Stomach, Via Natural or Artificial Opening Endoscopic, Diagnostic (ICD-10-PCS; principal; 2018-02-04)
DX: K92.2 Gastrointestinal hemorrhage, unspecified (principal); K26.9 Duodenal ulcer, unspecified as acute or chronic, without hemorrhage or perforation; D64.9 Anemia, unspecified; D25.9 Leiomyoma of uterus, unspecified; I95.9 Hypotension, unspecified; K57.90 Diverticulosis of intestine, part unspecified, without perforation or abscess without bleeding; R00.0 Tachycardia, unspecified; D72.829 Elevated white blood cell count, unspecified; K29.70 Gastritis, unspecified, without bleeding; K44.9 Diaphragmatic hernia without obstruction or gangrene; I10 Essential (primary) hypertension
CPT/HCPCS: 00731; 36415; 36430; 71045; 71045-26; 74176; 74176-26; 80048; 80053; 81001; 81025; 82272; 82607; 82728; 82746; 83550; 83630; 85025; 85045; 85610; 85730; 86677; 86850; 86900; 86901; 86920; 86921; 86922; 87040; 87046; 87324; 87899; 88104; 88305; 88312; 93005; 96365; 96375; 99284; 99285-25; A9270-GY; C9113; J2250; J2704; J2916; J3010; J7030; J7120; P9016

== ENCOUNTER 2018-05-12 10:36 | Day surgery (SDC) | payer SELFPAY ==
[~2018-05-12 10:36] MED LIST: Fluorescein 5 ML Vial ONE; Lactated Ringers 1,000 ML IV SCH; Sodium Chloride 0.9% 10 ML Syringe FLUSH PRN; Sodium Chloride 0.9% 2.5 ML Syringe FLUSH PRN; ceFAZolin 2 GM in Premix Bag 1 BAG IV ONE
[2018-05-12] MEDS ORDERED: Scopolamine 1.5 MG Transdermal Patch TRDERM PRN (11:17)
--- NOTE | 2018-05-12 11:17 | PCM.PREANE ---
Preanesthetic Assessment - Anesthesia/Transfusion/Family Hx Anesthesia History: Prior Anesthesia Reaction Other Type of Anesthesia Reaction Comment: PE during Family History of Anesthesia Reaction: No Transfusion History: Prior Transfusion Without Reaction Intubation History: Unknown - Review of Systems General: No Symptoms Pulmonary: No Symptoms Cardiovascular: No Symptoms Gastrointestinal: No Symptoms Neurological: No Symptoms Other: Reports: None - Physical Assessment Height: 1.63 m Weight: 54.431 kg ASA Class: 2 Mental Status: Alert & Oriented x3 Airway Class: Mallampati = 2 Dentition: Reports: Normal Dentition, Caries Thyro-Mental Finger Breadths: 3 Mouth Opening Finger Breadths: 3 ROM/Head Extension: Full Lungs: Clear to Auscultation, Normal Respiratory Effort Cardiovascular: Regular Rate, Regular Rhythm - Lab Values: Laboratory Last Values WBC 7.43 K/uL (4.0-11.0) 05/11/18 15:50 RBC 4.84 M/uL (4.30-5.90) 05/11/18 15:50 Hgb 14.0 g/dL (12.0-16.0) 05/11/18 15:50 Hct 42.4 % (36.0-46.0) 05/11/18 15:50 MCV 87.6 fL (80.0-98.0) 05/11/18 15:50 MCH 28.9 pg (27.0-32.0) 05/11/18 15:50 MCHC 33.0 g/dL (31.0-37.0) 05/11/18 15:50 RDW Std Deviation 50.6 fl (28.0-62.0) 05/11/18 15:50 RDW Coeff of Bryan 16 % (11.0-15.0) H 05/11/18 15:50 Plt Count 380 K/uL (150-400) 05/11/18 15:50 MPV 8.70 fL (7.40-12.00) 05/11/18 15:50 Nucleated RBC % 0.0 /100WBC 05/11/18 15:50 Nucleated RBCs # 0 K/uL 05/11/18 15:50 HCG, Qual NEGATIVE (NEG) 05/11/18 15:50 Blood Type A POSITIVE 05/11/18 15:50 Antibody Screen NEGATIVE 05/11/18 15:50 - Allergies Allergies/Adverse Reactions: Allergies Allergy/AdvReac Type Severity Reaction Status Date / Time No Known Allergies Allergy Verified 05/06/18 17:06 - Blood Blood Available: No - Anesthesia Plan Pre-Op Medication Ordered: None - Acknowledgements Anesthesia Type Planned: General Anesthesia Pt an Appropriate Candidate for the Planned Anesthesia: Yes Alternatives and Risks of Anesthesia Discussed w Pt/Guardian: Yes Pt/Guardian Understands and Agrees with Anesthesia Plan: Yes PreAnesthesia Questionnaire HEENT History: Reports: None Cardiovascular History: Reports: Other (See Below) Other Cardiovascular History: has been hypertensive in the past Respiratory History: Reports: PE, Other (See Below) Other Respiratory History: hx of smoking 1 PPD for 30 years, states hx of PE during (did not take anticoagulants) Gastrointestinal History: Reports: GI Bleed (h/o duodenal ulcer). 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 Musculoskeletal History: Reports: None Neurological History: Reports: Migraines Psychiatric History: Reports: None Endocrine/Metabolic History: Reports: None. Denies: Diabetes, Type II, Hypothyroidism Hematologic History: Reports: Anemia, Blood Transfusion(s) Immunologic History: Reports: None Oncologic (Cancer) History: Reports: None Dermatologic History: Reports: None - Infectious Disease History Infectious Disease History: Reports: Chicken Pox - Past Surgical History GI Surgical History: Reports: EGD, Other (See Below) Other GI Surgeries/Procedures: Laparotomy- repair of ruptured spleen Female Surgical History: Reports: Section - SUBSTANCE USE Smoking Status *Q: Current Every Day Smoker (1/2 ppd) Tobacco Use Within Last Twelve Months: Cigarettes Days Per Week of Alcohol Use: 3 Number of Drinks Per Day: 2 Total Drinks Per Week: 6 Recreational Drug Use History: No - HOME MEDS Home Medications: Home Meds Iron Polysaccharides Complex [Ferrex 150] 150 mg PO BID #30 cap 02/05/18 [Rx] Sucralfate [Carafate] 1 gm PO TID #60 tablet 02/05/18 [Rx] - CURRENT (IN HOUSE) MEDS Current Meds: Current Medications Lactated Ringer's (Ringers, Lactated) 1,000 mls @ 500 mls/hr IV .BOLUS [facility] Last Admin: 05/12/18 10:53 Dose: 500 mls/hr Sodium Chloride (Saline Flush) 10 ml FLUSH ASDIRECTED PRN PRN Reason: Keep Vein Open Sodium Chloride (Saline Flush) 2.5 ml FLUSH ASDIRECTED PRN PRN Reason: Keep Vein Open Discontinued Medications Fluorescein Sodium (Ak-Fluor) Confirm Administered Dose 5 ml .ROUTE .STK-MED ONE Stop: 05/12/18 07:37 Cefazolin Sodium/Dextrose 2 gm (/ Premix) 50 mls @ 100 mls/hr IV ONETIME ONE Stop: 05/11/18 10:26
[2018-05-12] MEDS ORDERED: Scopolamine 1.5 MG Transdermal Patch ONE (11:24)
[2018-05-12] MEDS ORDERED: fentaNYL 100 MCG/2 ML SDV IVPUSH PRN (11:44)
[2018-05-12] MEDS ORDERED: Lidocaine 2% 5 ML SDV ONE (11:59)
[2018-05-12] MEDS ORDERED: Rocuronium 10 MG/ML 10 ML Syringe ONE (11:59)
[2018-05-12] MEDS ORDERED: fentaNYL 250 MCG/5 ML SDV ONE (11:59)
[2018-05-12] MEDS ORDERED: Midazolam 1 MG/ML 2 ML SDV ONE (11:59)
[2018-05-12] MEDS ORDERED: Propofol 200 MG/20 ML SDV ONE (11:59)
[2018-05-12] MEDS ORDERED: Ondansetron 4 MG/2 ML SDV ONE (11:59)
[2018-05-12] MEDS ORDERED: diphenhydrAMINE 50 MG/ML SDV ONE (12:00)
[2018-05-12] MEDS ORDERED: Dexamethasone 4 MG/ML 5 ML MDV ONE (12:00)
[2018-05-12] MEDS ORDERED: HYDROmorphone 2 MG/ML SDV ONE (14:26)
[2018-05-12] MEDS ORDERED: Glycopyrrolate 0.2 MG/ML SDV ONE ×2 (14:46→14:54)
[2018-05-12] MEDS ORDERED: Neostigmine Methylsulfate 1 MG/ML 5 ML Syringe ONE (14:46)
[2018-05-12] MEDS ORDERED: Ketorolac 30 MG/ML SDV IVPUSH PRN (15:49)
[2018-05-12] MEDS ORDERED: Promethazine 25 MG/ML SDV IM PRN (15:49)
[2018-05-12] MEDS ORDERED: Ketorolac 30 MG/ML SDV IVPUSH ONE (15:49)
[2018-05-12] MEDS ORDERED: Acetaminophen/oxyCODONE 325-5 MG Tab PO PRN (15:49)
[2018-05-12] MEDS ORDERED: Ondansetron 4 MG/2 ML SDV IVPUSH PRN (15:49)
[2018-05-12] MEDS ORDERED: Morphine 4 MG/ML Syringe IVPUSH PRN (15:49)
--- NOTE | 2018-05-12 15:54 | PCM.OPNOTE ---
- General Post-Op/Procedure Note Date of Surgery/Procedure: 05/12/18 Operative Procedure(s): TVH,LSO,R.salpengectomy and Cystoscopy Post-Op Diagnosis: Same Anesthesia Technique: General ET Tube Primary Surgeon: Meño Almaraz EBL in mLs: 100 Complications: None Condition: Good
[2018-05-12] MEDS ORDERED: hydrALAZINE 20 MG/ML SDV ONE (16:08)
[2018-05-12] MEDS ORDERED: hydrALAZINE 20 MG/ML SDV IVPUSH ONE (16:16)
--- NOTE | 2018-05-12 17:02 | PCM.POSTAN ---
POST ANESTHESIA ASSESSMENT - MENTAL STATUS Mental Status: Alert, Oriented - RESPIRATORY Respiratory Status: Respiratory Rate WNL, Airway Patent, O2 Saturation Stable - CARDIOVASCULAR CV Status: Pulse Rate WNL, Blood Pressure Stable - GASTROINTESTINAL GI Status: No Symptoms - PAIN Pain Score: 4 - POST OP HYDRATION Hydration Status: Adequate & Stable
--- NOTE | 2018-05-12 18:43 | PCM48HPAN ---
Post Anesthesia Note - EVALUATION WITHIN 48HRS OF ANESTHETIC Vital Signs in Normal Range: Yes Patient Participated in Evaluation: Yes Respiratory Function Stable: Yes (O2 sats 100% on RA) Airway Patent: Yes Cardiovascular Function Stable: Yes Hydration Status Stable: Yes Pain Control Satisfactory: Yes (States she is not having any pain at all) Nausea and Vomiting Control Satisfactory: Yes Mental Status Recovered: Yes Resp Rate: 17
[2018-05-12] MEDS ORDERED: Lactated Ringers 1,000 ML IV SCH (18:45)
[2018-05-12] MEDS: Acetaminophen/oxyCODONE 325-5 MG Tab PO PRN (19:31)
[2018-05-13 04:18] VITALS: BP 109/70
[2018-05-13 06:25] LABS: CHLORIDE,CL 105 mmol/L (98-107); SODIUM,NA 137 mmol/L (136-145)
[2018-05-13] MEDS: Acetaminophen/oxyCODONE 325-5 MG Tab PO PRN (08:36)
--- NOTE | 2018-05-13 10:31 | PCM.PN ---
- General Info Date of Service: 05/13/18 Functional Status: Reports: Pain Controlled - Review of Systems General: Reports: No Symptoms HEENT: Reports: No Symptoms Pulmonary: Reports: No Symptoms Cardiovascular: Reports: No Symptoms Gastrointestinal: Reports: No Symptoms Genitourinary: Reports: No Symptoms Musculoskeletal: Reports: No Symptoms Skin: Reports: No Symptoms Neurological: Reports: No Symptoms Psychiatric: Reports: No Symptoms - Patient Data Vitals - Most Recent: Last Vital Signs Temp 36.9 C 05/13/18 04:00 Pulse 102 H 05/13/18 04:00 Resp 18 05/13/18 04:00 BP 109/70 05/13/18 04:00 Pulse Ox 97 05/13/18 04:00 Weight - Most Recent: 54.431 kg I&O - Last 24 Hours: Intake & Output 05/12/18 05/13/18 05/13/18 22:59 06:59 14:59 Intake Total 1900 600 Output Total 500 Balance 1900 100 Lab Results Last 24 Hours: Laboratory Results - last 24 hr 05/13/18 05/13/18 Range/Units 05:43 05:43 WBC 24.56 H (4.0-11.0) K/uL RBC 3.59 L (4.30-5.90) M/uL Hgb 10.2 L (12.0-16.0) g/dL Hct 30.9 L (36.0-46.0) % MCV 86.1 (80.0-98.0) fL MCH 28.4 (27.0-32.0) pg MCHC 33.0 (31.0-37.0) g/dL RDW Std Deviation 48.6 (28.0-62.0) fl RDW Coeff of Bryan 15 (11.0-15.0) % Plt Count 369 (150-400) K/uL MPV 8.80 (7.40-12.00) fL Neut % (Auto) 83.8 H (48.0-80.0) % Lymph % (Auto) 6.8 L (16.0-40.0) % Brooke % (Auto) 9.3 (0.0-15.0) % Eos % (Auto) 0.0 (0.0-7.0) % Baso % (Auto) 0.1 (0.0-1.5) % Neut # (Auto) 20.6 H (1.4-5.7) K/uL Lymph # (Auto) 1.7 (0.6-2.4) K/uL Brooke # (Auto) 2.3 H (0.0-0.8) K/uL Eos # (Auto) 0.0 (0.0-0.7) K/uL Baso # (Auto) 0.0 (0.0-0.1) K/uL Nucleated RBC % 0.0 /100WBC Nucleated RBCs # 0 K/uL Sodium 137 (136-145) mmol/L Potassium 3.5 (3.5-5.1) mmol/L Chloride 105 (98-107) mmol/L Carbon Dioxide 25.1 (21.0-32.0) mmol/L BUN 15 (7.0-18.0) mg/dL Creatinine 0.8 (0.6-1.0) mg/dL Est Cr Clr Drug Dosing 76.31 mL/min Estimated GFR (MDRD) > 60.0 ml/min Glucose 108 H (74-106) mg/dL Calcium 8.0 L (8.5-10.1) mg/dL Med Orders - Current: Current Medications Fentanyl (Sublimaze) 50 mcg IVPUSH SEECOMMENT PRN PRN Reason: Pain (moderate 4-6) Lactated Ringer's (Ringers, Lactated) 1,000 mls @ 500 mls/hr IV .BOLUS [facility] Last Admin: 05/12/18 10:53 Dose: 500 mls/hr Lactated Ringer's (Ringers, Lactated) 1,000 mls @ 125 mls/hr IV ASDIRECTED [facility] Last Admin: 05/12/18 18:58 Dose: 125 mls/hr Ketorolac Tromethamine (Toradol) 30 mg IVPUSH Q6H PRN PRN Reason: Pain (severe 7-10) Stop: 05/17/18 15:50 Morphine Sulfate (Morphine) 4 mg IVPUSH Q2H PRN PRN Reason: Pain (severe 7-10) Ondansetron HCl (Zofran) 4 mg IVPUSH Q6H PRN PRN Reason: Nausea/Vomiting Oxycodone/Acetaminophen (Percocet 325-5 Mg) 1 tab PO Q4H PRN PRN Reason: Pain (moderate 4-6) Oxycodone/Acetaminophen (Percocet 325-5 Mg) 2 tab PO Q4H PRN PRN Reason: Pain (moderate 4-6) Last Admin: 05/13/18 08:36 Dose: 2 tab Promethazine HCl (Phenergan) 25 mg IM Q6H PRN PRN Reason: Nausea/Vomiting Scopolamine (Transderm-Scop) 1.5 mg TRDERM Q72H PRN PRN Reason: Nausea Last Admin: 05/12/18 11:27 Dose: 1.5 mg Sodium Chloride (Saline Flush) 10 ml FLUSH ASDIRECTED PRN PRN Reason: Keep Vein Open Sodium Chloride (Saline Flush) 2.5 ml FLUSH ASDIRECTED PRN PRN Reason: Keep Vein Open Discontinued Medications Dexamethasone (Dexamethasone) Confirm Administered Dose 20 mg .ROUTE .STK-MED ONE Stop: 05/12/18 12:01 Diphenhydramine HCl (Benadryl) Confirm Administered Dose 50 mg .ROUTE .STK-MED ONE Stop: 05/12/18 12:01 Fentanyl (Sublimaze) Confirm Administered Dose 250 mcg .ROUTE .STK-MED ONE Stop: 05/12/18 12:00 Fluorescein Sodium (Ak-Fluor) Confirm Administered Dose 5 ml .ROUTE .STK-MED ONE Stop: 05/12/18 07:37 Glycopyrrolate (Robinul) Confirm Administered Dose 0.2 mg .ROUTE .STK-MED ONE Stop: 05/12/18 14:47 Glycopyrrolate (Robinul) Confirm Administered Dose 0.2 mg .ROUTE .STK-MED ONE Stop: 05/12/18 14:55 Hydralazine HCl (Apresoline) Confirm Administered Dose 20 mg .ROUTE .STK-MED ONE Stop: 05/12/18 16:09 Last Admin: 05/12/18 17:18 Dose: Not Given Hydralazine HCl (Apresoline) 5 mg IVPUSH ONETIME ONE Stop: 05/12/18 16:17 Last Admin: 05/12/18 16:11 Dose: 5 mg Hydromorphone HCl (Dilaudid) Confirm Administered Dose 2 mg .ROUTE .STK-MED ONE Stop: 05/12/18 14:27 Cefazolin Sodium/Dextrose 2 gm (/ Premix) 50 mls @ 100 mls/hr IV ONETIME ONE Stop: 05/11/18 10:26 Last Admin: 05/12/18 17:18 Dose: Not Given Cefazolin Sodium/Dextrose (Ancef) Confirm Administered Dose 50 mls @ as directed .ROUTE .STK-MED ONE Stop: 05/12/18 13:13 Ketorolac Tromethamine (Toradol) 30 mg IVPUSH ONETIME ONE Stop: 05/12/18 15:50 Last Admin: 05/12/18 16:36 Dose: 30 mg Lidocaine (Xylocaine-Mpf 2%) Confirm Administered Dose 5 ml .ROUTE .STK-MED ONE Stop: 05/12/18 12:00 Midazolam HCl (Versed 1 Mg/Ml) Confirm Administered Dose 2 mg .ROUTE .STK-MED ONE Stop: 05/12/18 12:00 Neostigmine Methylsulfate (Neostigmine) Confirm Administered Dose 5 mg .ROUTE .STK-MED ONE Stop: 05/12/18 14:47 Ondansetron HCl (Zofran) Confirm Administered Dose 4 mg .ROUTE .STK-MED ONE Stop: 05/12/18 12:00 Propofol (Diprivan 20 Ml) Confirm Administered Dose 200 mg .ROUTE .STK-MED ONE Stop: 05/12/18 12:00 Rocuronium Bonner (Zemuron) Confirm Administered Dose 100 mg .ROUTE .STK-MED ONE Stop: 05/12/18 12:00 Scopolamine (Transderm-Scop) Confirm Administered Dose 1.5 mg .ROUTE .STK-MED ONE Stop: 05/12/18 11:25 Last Admin: 05/12/18 17:18 Dose: Not Given - Exam General: Alert, Oriented HEENT: Pupils Equal, Pupils Reactive, EOMI, Mucous Membr. Moist/[place] Neck: Supple Lungs: Clear to Auscultation, Normal Respiratory Effort Cardiovascular: Regular Rate, Regular Rhythm GI/Abdominal Exam: Normal Bowel Sounds, Soft, Non-Tender, No Organomegaly, No Distention, No Abnormal Bruit, No Mass, Pelvis Stable (Female) Exam: Normal External Exam, Normal Speculum Exam, Normal Bimanual Exam Back Exam: Normal Inspection, Full Range of Motion Extremities: Normal Inspection, Normal Range of Motion, Non-Tender, No Pedal Edema, Normal Capillary Refill Skin: Warm, Dry, Intact Wound/Incisions: Healing Well Neurological: No New Focal Deficit Psy/Mental Status: Alert, Normal Affect, Normal Mood EKG INTERPRETATION Rhythm: NSR [place]: Normal P-Wave: Present QRS: Normal ST-T: Normal QT: Normal Comparison: NA - No Prior EKG - Problem List Review Problem List Initiated/Reviewed/Updated: Yes - My Orders Last 24 Hours: My Active Orders 05/12/18 15:49 Acetaminophen/oxyCODONE [Percocet 325-5 MG] 1 tab PO Q4H PRN Acetaminophen/oxyCODONE [Percocet 325-5 MG] 2 tab PO Q4H PRN Ketorolac [Toradol] 30 mg IVPUSH Q6H PRN Morphine 4 mg IVPUSH Q2H PRN Ondansetron [Zofran] 4 mg IVPUSH Q6H PRN Promethazine [Phenergan] 25 mg IM Q6H PRN Resuscitation Status Routine 05/12/18 15:50 Patient Status [ADT] Routine Notify Provider Vital Signs [RC] ASDIRECTED Oxygen Therapy [RC] ASDIRECTED RT Incentive Spirometry [RC] Q2HWA Up With Assistance [RC] PER UNIT ROUTINE Up ad Liliana [RC] PER UNIT ROUTINE Urinary Catheter Removal [RC] Per Unit Routine Vital Signs [RC] PER UNIT ROUTINE Peripheral IV Discontinue [OM.PC] Routine Sequential Compression Device [OM.PC] Per Unit Routine 05/12/18 18:45 Lactated Ringers [Ringers, Lactated] 1,000 ml IV ASDIRECTED 05/12/18 Dinner Regular Diet [DIET] - Assessment Assessment:: pod #1 DOING WELL.
--- NOTE | 2018-05-13 12:49 | OR ---
SURGEON: Meño Almaraz MD DATE OF PROCEDURE: PREOPERATIVE DIAGNOSIS: Menometrorrhagia. POSTOPERATIVE DIAGNOSIS: Menometrorrhagia. OPERATIONS PERFORMED: Total vaginal hysterectomy, left salpingo-oophorectomy, right salpingectomy preserving the right ovary and cystoscopy. BILLING CLINICIAN: OR tech. ANESTHESIA: General endotracheal intubation, Yamini Kelley and Dr. Sanchez. ESTIMATED BLOOD LOSS: Less than 100 mL. COMPLICATIONS: None. FINDINGS: Uterus about 10 week size with multiple fibroids. INDICATION FOR SURGERY: Liscomb referred to the admit note. PROCEDURE IN DETAIL: The patient was brought to the OR, properly identified and after adequate level of general anesthesia, the patient placed in lithotomy position, prepped and draped in sterile fashion as usual. Single-tooth tenaculum was applied to the cervix. Using electrocautery, circular incision in the vaginal mucosa was done and the posterior cul-de-sac was entered posteriorly and peritoneum and the vagina tagged with 2-0 Vicryl and held for further identification. The short weighted speculum replaced with an extended long weighted speculum and the uterosacral ligament was clamped from both sides, transected, and suture ligated with 2-0 Vicryl pop-off, and held for further identification. The same thing done with the cardinal ligament. Then, the cervical vesicle space was entered anteriorly. It was not a smooth entry because of her previous section. However, it was entered without any problem. Then the broad ligament from both sides clamped with a curved Zeppelin, transected, and suture ligated with 2-0 Vicryl pop-off. The uterine vessel was suture ligated at this step and the uterus delivered posteriorly. The 90-degree curve clamp was applied to the superior pedicle. The left tube and ovary included with the specimen. The right tube included with the specimen, but the right ovary is preserved. Then, the superior pedicle tied twice with a free tie on both sides. Inspection of all the pedicle shows no oozing, no bleeding. The vaginal cuff was closed with 2-0 Vicryl in interrupted [id number] sutures. After that, while we were doing that, we asked the anesthesiologist to give the patient 5 mL of indigo carmine and cystoscopy was performed. The bladder was intact. Both ureteric orifices were seen with the dye coming from both of them, thus the patency of both ureters verified. Satisfied with these findings, the procedure ended. The instrument sponge count was correct. The patient went to recovery room in stable general condition. LEILANI LEYVA /[id number]
== END 2018-05-13 11:30 | disposition home or self-care (01) ==
LOC: MW.SDS 10:36 → MW.MS 15:50 → MW.SDS 05-13 11:30
PROVIDERS: ATTEND Obstetrics & Gynecology
DX: D25.1 Intramural leiomyoma of uterus (principal); D25.0 Submucous leiomyoma of uterus; D25.2 Subserosal leiomyoma of uterus; N87.9 Dysplasia of cervix uteri, unspecified; N83.02 Follicular cyst of left ovary; I10 Essential (primary) hypertension; F17.210 Nicotine dependence, cigarettes, uncomplicated
CPT/HCPCS: 36415; 58262; 80048; 84703; 85025; 85027; 86850; 86900; 86901; A9270; J0360; J0690; J1100; J1170; J1200; J1885; J2250; J2405; J3010; J7120; J2704